=== PATIENT | male | born 1990 | race Caucasian/White ===

== ENCOUNTER 2019-06-02 19:42 | Emergency (ER) | payer SELFPAY ==
[~2019-06-02] VITALS: Ht 172.7 cm; Wt 72.6 kg
--- OUTSIDE RECORDS SUMMARY | 2019-06-02 19:46 | XMS REPORT ---
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 Tracie Shrikanth Gonorrhea active Tracie Shrikanth Chlamydial infection active Tracie Shrikanth Anemia active Tracie Shrikanth Abscess active Chery Robel Epididymitis, left active Kenny Moreno Urethritis active Ric Yuan Wart active Denisse Kirbypard Conjunctivitis, acute, right active Denisse Kirbypard Exposure to STD active Scotty Cummings Sciatica active Tracie Shrikanth Syphilis active Louise Diaz Cholesterol, Screening active Louisejesus Diaz Disorder, endocrine NOS active Louisejesus Diaz Knee joint pain, left active Louisejesus Diaz Shoulder joint pain, right active Louise Diaz Preventive health care active Louise Diaz Need for prophylactic immunotherapy completed - Louisejesus Diaz Gonorrhea of pharynx active Tracie Shrikanth Syphilis completed - Louise Diaz Immunization update active Louise Diaz HIV infection active John Villatoro ENCOUNTERS Date Type Provider Location Encounter Diagnosis - Ambulatory Encounter Lacie Pollard [facility] Adult Medicine UNK - Ambulatory Encounter Joao Kuhn [facility] [place] Adult Medicine UNK - Ambulatory Encounter Tracie Cieranth Tracie Jordyikanth LM Adult Medicine Gonorrhea of pharynxVenereal disease of the anus and rectum due to Chlamydia trachomatisGonococcal infection of anus and rectum - Ambulatory Encounter Traciealem Rockh Tracie Spenceikanth [employer] [place] Adult Medicine UNK - Ambulatory Encounter Tracie Jordyikanth Tracie Jordyikanth [facility] [place] Adult Medicine UNK - Ambulatory Encounter Tracie Pranavh Tracie Cieranth Lacie Pollard LM Adult Medicine UNK - Ambulatory Encounter Tracie Cieranth Tracie Jordyikanth [employer] [place] Adult Medicine UNK - Ambulatory Encounter Traciealem Rockh Tracie Vangnth [facility] [place] Adult Medicine UNK - Ambulatory Encounter Traciealem Kuhn [facility] [place] Adult Medicine Chlamydial infectionGonorrhea - Ambulatory Encounter Traciealem Vangnth Tracie Jordyikanth [employer] [facility] [place] Adult Medicine UNK - Ambulatory Encounter Margaret Ann [facility] Services UNK - Ambulatory Encounter Traciealem Vangnth [facility] [place] Adult Medicine UNK - Ambulatory Encounter Tracie Jordyikanth Tracie Jordyikanth [facility] [place] Adult Medicine UNK - Ambulatory Encounter Tracie Cieranth Tracie Bowen Ann [facility] [place] Adult Medicine Anemia - Ambulatory Encounter Tracie Pranavh Tracie Jordyikanth [employer] [facility] [place] Adult Medicine UNK - Ambulatory Encounter Elizabeth Ramirez [facility] [place] Adult Medicine UNK - Ambulatory Encounter Ric Yuan [facility] LM Adult Medicine UNK - Ambulatory Encounter Ric Yuan [facility] Adult Medicine UNK - Ambulatory Encounter Ric Yuan Jose Eduardo Beaulieu [facility] [place] Adult Medicine UNK - Ambulatory Encounter Tracie Fernandes [facility], LM Adult Medicine UNK - Ambulatory Encounter Patricia Warner [facility] [place] [facility] [employer] UNK - Ambulatory Encounter Magdalene Steiner [facility] Adult Medicine UNK - Ambulatory Encounter Magdalene Steiner [facility] Adult Medicine UNK - Ambulatory Encounter Magdalene Steiner [facility] LM Adult Medicine UNK - Ambulatory Encounter Lisa Sorensen [facility] [place] Adult Medicine UNK - Ambulatory Encounter Magdalene Steiner [facility] [place] Adult Medicine UNK - Ambulatory Encounter Magdalene Soliz [facility] [place] Adult Medicine UNK - Ambulatory Encounter LM Care Coordination Desktop Yuki Fernandes [facility], [facility] UNK - Ambulatory Encounter Eva Rader [facility] [place] Adult Medicine UNK - Ambulatory Encounter Serena Mejia [facility] Services UNK - Ambulatory Encounter Eva Ortiz [employer] LM Adult Medicine UNK - Ambulatory Encounter Tracie Wiseman [employer] [facility] [place] Adult Medicine UNK - Ambulatory Encounter Eva Rader [facility] [place] Adult Medicine UNK - Ambulatory Encounter Patricia Mcdonald [facility] Adult Medicine UNK - Ambulatory Encounter Remigio Warner LM Adult Medicine UNK - Ambulatory Encounter Randi Daniel [facility] UNK - Ambulatory Encounter Tracie Wiseman [facility] Adult Medicine UNK - Ambulatory Encounter Tracie Pollard [facility] Adult Medicine UNK - Ambulatory Encounter Tracie Wiseman [facility] Adult Medicine UNK - Ambulatory Encounter Tracie Wiseman [facility] Adult Medicine UNK - Ambulatory Encounter Tracie Pollard [facility] Adult Medicine UNK - Ambulatory Encounter Chery Huston LM Adult Medicine UNK - Ambulatory Encounter Chery Mcmillan [facility] Adult Medicine Abscess - Ambulatory Encounter Chery Huston [facility] LM Adult Medicine UNK - Ambulatory Encounter Chery Huston LM Adult Medicine UNK - Ambulatory Encounter Chery Mcmillan [facility] Adult Medicine UNK - Ambulatory Encounter Lacie Becerraunas [facility] UNK - Ambulatory Encounter Kenny Moreno LinkLog LM Adult Medicine UNK - Ambulatory Encounter Kenny Moreno LM Adult Medicine UNK - Ambulatory Encounter Kenny Moreno [facility] Adult Medicine UNK - Ambulatory Encounter Kenny Quispecy Amadou LM Adult Medicine Epididymitis, left - Ambulatory Encounter [facility] UNK - Ambulatory Encounter Tracie Vizcaino [facility] UNK - Ambulatory Encounter Elizabeth Ramirez [facility] Adult Medicine UNK - Ambulatory Encounter Ric Yuan [facility] LM Adult Medicine UNK - Ambulatory Encounter Ric Yuan LM Adult Medicine UNK - Ambulatory Encounter Ric Johnson Ramirez [facility] [place] Adult Medicine Urethritis - Ambulatory Encounter Denisse Luis Valarie Rader [facility] Adult Medicine UNK - Ambulatory Encounter Denisse Luis [facility] Adult Medicine UNK - Ambulatory Encounter Denisse Kirbypard [facility] Adult Medicine UNK - Ambulatory Encounter Denisse Kirbyparjuan carlos Kirbyparjuan carlos Ruiz Nila LM Adult Medicine Conjunctivitis, acute, rightWart - Ambulatory Encounter Tracie Wiseman [facility] Adult Medicine UNK - Ambulatory Encounter Scotty Cummings [facility] LM Adult Medicine UNK - Ambulatory Encounter Scotty Cummings [facility] Adult Medicine UNK - Ambulatory Encounter Scotty Martinez LM Adult Medicine Exposure to STD - Ambulatory Encounter Tracie Reyes [facility] UNK - Ambulatory Encounter Remigio Alexis [facility] Adult Medicine UNK - Ambulatory Encounter Tracie Wiseman [facility] Adult Medicine UNK - Ambulatory Encounter Tracie Pollard [facility] Adult Medicine UNK - Ambulatory Encounter Tracie Wiseman [facility] Adult Medicine UNK - Ambulatory Encounter Tracie Wiseman [facility] Adult Medicine UNK - Ambulatory Encounter Oumar Marquez [facility] [place] [employer] UNK - Ambulatory Encounter Tracie Wiseman [facility] Adult Medicine UNK - Ambulatory Encounter Tracie Knox LM Adult Medicine Sciatica - Ambulatory Encounter Dagoberto Asific Cesilia Romero [facility] Adult Medicine UNK - Ambulatory Encounter Tracie Wiseman [facility] Adult Medicine UNK - Ambulatory Encounter [facility] UNK - Ambulatory Encounter Louise Diaz [facility] Adult Medicine UNK - Ambulatory Encounter Louise Beaulieu [facility] Adult Medicine Syphilis - Ambulatory Encounter Louise Diaz [facility] Adult Medicine UNK - Ambulatory Encounter Ronda [facility]ic [facility] Adult Medicine UNK - Ambulatory Encounter Louise HamptonLogic [facility] Adult Medicine UNK - Ambulatory Encounter Florenica Diaz LM Adult Medicine UNK - Ambulatory Encounter Sabrina Payton LinkLograndee Diaz [facility] [place] Adult Medicine UNK - Ambulatory Encounter Patricia Warner [facility] [place] [employer] UNK - Ambulatory Encounter Louise Diaz LM Adult Medicine UNK - Ambulatory Encounter Louise Beaulieu [facility] [place] Adult Medicine Disorder, endocrine NOSCholesterol, Screening - Ambulatory Encounter Leandra Beaulieu [facility] [place] Adult Medicine UNK - Ambulatory Encounter Louise Diaz [employer] LM Adult Medicine UNK - Ambulatory Encounter Louise Diaz LinkLograndee LM Adult Medicine UNK - Ambulatory Encounter Leandra Beaulieu LM Adult Medicine UNK - Ambulatory Encounter Leandra Beaulieu LM Adult Medicine UNK - Ambulatory Encounter Leandra Beaulieu LM Adult Medicine UNK - Ambulatory Encounter Louise Diaz LM Adult Medicine UNK - Ambulatory Encounter Louise Diaz [employer] LM Adult Medicine UNK - Ambulatory Encounter Louise Diaz [employer] Leandra Beaulieu LM Adult Medicine UNK - Ambulatory Encounter Louise Guadarrama Aus LM Adult Medicine UNK - Ambulatory Encounter Louise Chirinos LM Adult Medicine UNK - Ambulatory Encounter Louise Diaz LM Adult Medicine UNK - Ambulatory Encounter Louise Rader [facility] [place] Adult Medicine SyphilisGonorrhea of pharynxNeed for prophylactic immunotherapyShoulder joint pain, rightKnee joint pain, left - Ambulatory Encounter Louise Diaz [employer] [facility] [place] Adult Medicine UNK - Ambulatory Encounter Patricia Warner [facility] [place] [employer] UNK - Ambulatory Encounter Patricia Warner [facility] [place] [employer] UNK - Ambulatory Encounter Patricia Warner [facility] [place] [employer] UNK - Ambulatory Encounter Patricia Warner [facility] [place] [employer] UNK - [facility] - Ambulatory Encounter Louise Diaz [facility] [place] Adult Medicine UNK - Ambulatory Encounter Louise Beaulieu [facility] [place] Adult Medicine Preventive health care - Ambulatory Encounter Neal Ribera [facility] [place] Adult Medicine UNK - Ambulatory Encounter Louise [facility] - Ambulatory Encounter Ronda Albert [facility] [place] Adult Medicine Need for prophylactic immunotherapy - Ambulatory Encounter Remigio Mistry [facility] [place] Adult Medicine UNK - Ambulatory Encounter Tanya Sharma [facility] [place] [employer] UNK - Ambulatory Encounter [facility] UNK - Ambulatory Encounter Tanya Sharma [facility] [place] [employer] UNK - Ambulatory Encounter Tanya Sharma [facility] [place] [employer] UNK - Ambulatory Encounter Tanya Sharma [facility] [place] [employer] UNK - Ambulatory Encounter Tanya Sharma [facility] [place] [employer] UNK - Ambulatory Encounter Louise Beaulieu [facility] [place] Adult Medicine Gonorrhea of pharynx - Ambulatory Encounter [facility] - Ambulatory Encounter Leandra Diaz [facility] [place] Adult Medicine UNK - Ambulatory Encounter Louise Diaz [facility] [place] Adult Medicine UNK - Ambulatory Encounter Louise [facility] - Ambulatory Encounter Louise [facility] - Ambulatory Encounter Tanya [email or web address] [employer] UNK - Ambulatory Encounter Louise Diaz [facility] Adult Medicine UNK - Ambulatory Encounter Louise Diaz [facility] Adult Medicine UNK - Ambulatory Encounter Louise Beaulieu [facility] [place] Adult Medicine UNK - Ambulatory Encounter Zak Roy [facility] [place] Adult Medicine UNK - Ambulatory Encounter Louise Diaz [employer] [facility] Adult Medicine UNK - Ambulatory Encounter Remigio Mistry [facility] [place] Adult Medicine UNK - Ambulatory Encounter Louise Diaz [facility] Adult Medicine UNK - Ambulatory Encounter Tanya Sharma [facility] [place] [employer] UNK - Ambulatory Encounter Tanya Sharma [facility] [place] [employer] UNK - Ambulatory Encounter Louise Diaz LM Adult Medicine UNK - Ambulatory Encounter Tanya Sharma [facility] [employer] UNK - Ambulatory Encounter Louise Diaz LM Adult Medicine UNK - Ambulatory Encounter Louise Beaulieu [facility] [place] Adult Medicine UNK - Ambulatory Encounter Zak Roy LM Adult Medicine UNK - Ambulatory Encounter Zak Roy [facility] [place] Adult Medicine UNK - Ambulatory Encounter [facility] - Ambulatory Encounter Tanya Sharma [facility] [place] [employer] UNK - Ambulatory Encounter Bin Chang LM Adult Medicine UNK - Ambulatory Encounter Tanya Sharma [facility] [place] [employer] UNK - Ambulatory Encounter Zak Roy LM Adult Medicine UNK - Ambulatory Encounter Zak Roy LM Adult Medicine UNK - Ambulatory Encounter Louise Diaz LM Adult Medicine UNK - Ambulatory Encounter Louise Beaulieu [facility] [place] Adult Medicine Immunization updateSyphilis - Ambulatory Encounter Louise Diaz LM Adult Medicine UNK - Ambulatory Encounter Louise Diaz [facility]Logic LM Adult Medicine UNK - [facility]ulatory [facility] - Ambulatory Encounter Louise Diazhannah Villatoro [facility] [place] Adult Medicine HIV infection VITAL SIGNS No Information Available ALLERGIES Allergy Name Onset Date Reaction Criticality Status CODEINE face itsches Unable to assess criticality active ABACAVIR, [id number] POSITIVE, POSSIBLE HYPERSENSITIVITY High Criticality active REASON FOR REFERRAL No Information Available RESULTS Date Observation Value Provider Reference Range Interpretation Location Neisseria gonorrhoeae, throat culture Positive [employer] Negative Abnormal " Neisseria gonorrhoeae DNA probe Positive [employer] Negative Abnormal " chlamydia DNA probe Negative [employer] Negative Neisseria gonorrhoeae DNA probe Negative [employer] Negative " chlamydia DNA probe Negative [employer] Negative ferritin, serum 78 ng/mL [facility] 30-400 " rapid plasma reagin antibody, serum Non Reactive [employer] Non Reactive " folate, serum >19.9 ng/mL [employer] >3.0 " B-12, serum 388 pg/mL [employer] 232-1245 " iron saturation percent, serum 34 % [facility] 15-55 " iron, serum 100 ug/dL [employer] 38-169 " iron binding capacity, unsaturated 192 ug/dL [employer] 111-343 " iron binding capacity, total 292 ug/dL [facility] 250-450 " immature granulocytes, percentage of total cells, blood 0 % [employer] Not Estab. " basophil count, absolute 0.0 x10E3/uL [employer] 0.0-0.2 " Eosinophil Absolute Count 0.1 X10E3/UL [employer] 0.0-0.4 " monocyte count, blood, automated 0.4 X10E3/UL [employer] 0.1-0.9 " lymphocyte count, blood, automated 2.0 X10E3/UL [employer] 0.7-3.1 " Absolute Neutrophils 2.4 X10E3/UL [employer] 1.4-7.0 " basophils as percent of blood leukocytes 0 % [employer] Not Estab. " eosinophils as percent of blood leukocytes 1 % [employer] Not Estab. " monocytes as percent of blood leukocytes 9 % [employer] Not Estab. " lymphocytes as percent of blood leukocytes 40 % [employer] Not Estab. " neutrophils as percent of blood leukocytes 50 % [employer] Not Estab. " platelet count 293 X10E3/UL [employer] 150-450 " red blood cell distribution width 14.2 % [employer] 12.3-15.4 " mean corpuscular hemoglobin concentration, RBC 34.4 G/DL [employer] 31.5-35.7 " mean corpuscular hemoglobin, RBC 29.9 pg [employer] 26.6-33.0 " mean corpuscular volume, RBC 87 fL [employer] 79-97 " hematocrit, blood 36.3 % [employer] 37.5-51.0 Low " hemoglobin, blood 12.5 g/dL [employer] 13.0-17.7 Low " erythrocyte (RBC) count 4.18 X10E6/UL [employer] 4.14-5.80 " leukocyte count, blood 4.9 X10E3/UL [employer] 3.4-10.8 rapid plasma reagin antibody, serum Non Reactive [employer] Non Reactive " HIV-1RNA, serum, by PCR, quantitative <20 copies/mL [facility] " alanine aminotransferase (SGPT), serum 35 1/L [facility] 0-44 " aspartate aminotransferase (SGOT), serum 24 1/L [employer] 0-40 " alkaline phosphatase, serum 68 1/L [employer] 39-117 " bilirubin, serum, total 0.3 mg/dL [employer] 0.0-1.2 " albumin/globulin ratio, serum 1.9 [employer] 1.2-2.2 " globulin, serum 2.5 [employer] 1.5-4.5 " albumin, serum 4.7 g/dL [employer] 3.5-5.5 " protein, total, serum 7.2 g/dL [employer] 6.0-8.5 " calcium, serum 9.9 mg/dL [employer] 8.7-10.2 " carbon dioxide, venous blood 27 mmol/L [employer] 20-29 " chloride, serum 101 mmol/L [employer] 96-106 " potassium, serum 4.1 mmol/L [employer] 3.5-5.2 " sodium, serum 141 mmol/L [employer] 134-144 " urea nitrogen/creatinine ratio, serum 12 [facility] 9-20 " eGFR if 111 mL/min/((173/100).m2) [facility] >59 " Estimated Glomerular Filtration Rate (calc) 96 mL/min/((173/100).m2) [employer] >59 " creatinine, serum 1.04 mg/dL [employer] 0.76-1.27 " urea nitrogen, blood 12 mg/dL [employer] 6-20 " blood glucose, random 100 mg/dL [employer] 65-99 High " immature granulocytes, percentage of total cells, blood 0 % [employer] Not Estab. " basophil count, absolute 0.0 x10E3/uL [employer] 0.0-0.2 " Eosinophil Absolute Count 0.2 X10E3/UL [employer] 0.0-0.4 " monocyte count, blood, automated 0.6 X10E3/UL [employer] 0.1-0.9 " lymphocyte count, blood, automated 3.1 X10E3/UL [employer] 0.7-3.1 " Absolute Neutrophils 2.7 X10E3/UL [employer] 1.4-7.0 " basophils as percent of blood leukocytes 1 % [employer] Not Estab. " eosinophils as percent of blood leukocytes 2 % [employer] Not Estab. " monocytes as percent of blood leukocytes 9 % [employer] Not Estab. " lymphocytes as percent of blood leukocytes 47 % [employer] Not Estab. " neutrophils as percent of blood leukocytes 41 % [employer] Not Estab. " platelet count 335 X10E3/UL [employer] 150-379 " red blood cell distribution width 14.2 % [employer] 12.3-15.4 " mean corpuscular hemoglobin concentration, RBC 34.0 G/DL [employer] 31.5-35.7 " mean corpuscular hemoglobin, RBC 29.4 pg [employer] 26.6-33.0 " mean corpuscular volume, RBC 87 fL [employer] 79-97 " hematocrit, blood 37.1 % [employer] 37.5-51.0 Low " hemoglobin, blood 12.6 g/dL [employer] 13.0-17.7 Low " erythrocyte (RBC) count 4.29 X10E6/UL [employer] 4.14-5.80 " leukocyte count, blood 6.6 X10E3/UL [employer] 3.4-10.8 " CD4/CD8 ratio 1.04 [employer] 0.92-3.72 " T-suppressor cells (CD8) as percent of blood lymphocytes 34.6 % [facility] 12.0-35.5 " absolute CD8 1073 [facility] 109-897 High " T-helper cells (CD4) as percent of blood lymphocytes 36.1 % [facility] 30.8-58.5 " T-helper cells (CD4) count 1119 /UL [employer] [phone] Neisseria gonorrhoeae DNA probe Positive [employer] Negative Abnormal " chlamydia DNA probe Positive [employer] Negative Abnormal Neisseria gonorrhoeae DNA probe Negative [employer] Negative " chlamydia DNA probe Negative [employer] Negative Neisseria gonorrhoeae, throat culture Negative [employer] Negative hepatitis B surface antigen Negative [employer] Negative " hepatitis C antibody, serum <0.1 [employer] 0.0-0.9 " rapid plasma reagin antibody, serum Non Reactive [employer] Non Reactive Neisseria gonorrhoeae, throat culture Negative [employer] Negative " Neisseria gonorrhoeae DNA probe Negative [employer] Negative " chlamydia DNA probe Negative [employer] Negative Neisseria gonorrhoeae DNA probe Negative [employer] Negative " chlamydia DNA probe Negative [employer] Negative hepatitis B surface antigen Negative [employer] Negative " hepatitis C antibody, serum <0.1 [employer] 0.0-0.9 " rapid plasma reagin antibody, serum Non Reactive [employer] Non Reactive " HIV-1RNA, serum, by PCR, quantitative <20 copies/mL [facility] " LDL cholesterol, serum 56 mg/dL [facility] 0-99 " very low density lipoproteins 12 mg/dL [facility] 5-40 " HDL cholesterol, serum 45 mg/dL [employer] >39 " triglyceride, serum, fasting 58 mg/dL [facility] 0-149 " cholesterol, serum 113 mg/dL [employer] 100-199 " alanine aminotransferase (SGPT), serum 19 1/L [employer] 0-44 " aspartate aminotransferase (SGOT), serum 18 1/L [employer] 0-40 " alkaline phosphatase, serum 68 1/L [employer] 39-117 " bilirubin, serum, total 0.6 mg/dL [employer] 0.0-1.2 " albumin/globulin ratio, serum 1.9 [employer] 1.2-2.2 " globulin, serum 2.5 [employer] 1.5-4.5 " albumin, serum 4.7 g/dL [employer] 3.5-5.5 " protein, total, serum 7.2 g/dL [employer] 6.0-8.5 " calcium, serum 9.5 mg/dL [employer] 8.7-10.2 " carbon dioxide, venous blood 25 mmol/L [employer] 20-29 " chloride, serum 100 mmol/L [employer] 96-106 " potassium, serum 4.0 mmol/L [employer] 3.5-5.2 " sodium, serum 136 mmol/L [employer] 134-144 " urea nitrogen/creatinine ratio, serum 10 [employer] 9-20 " eGFR if 108 mL/min/((173/100).m2) [facility] >59 " Estimated Glomerular Filtration Rate (calc) 93 mL/min/((173/100).m2) [employer] >59 " creatinine, serum 1.07 mg/dL [employer] 0.76-1.27 " urea nitrogen, blood 11 mg/dL [employer] 6-20 " blood glucose, random 107 mg/dL [employer] 65-99 High " immature granulocytes, percentage of total cells, blood 0 % [employer] Not Estab. " basophil count, absolute 0.0 x10E3/uL [employer] 0.0-0.2 " Eosinophil Absolute Count 0.1 X10E3/UL [employer] 0.0-0.4 " monocyte count, blood, automated 0.3 X10E3/UL [employer] 0.1-0.9 " lymphocyte count, blood, automated 2.2 X10E3/UL [employer] 0.7-3.1 " Absolute Neutrophils 4.5 X10E3/UL [employer] 1.4-7.0 " basophils as percent of blood leukocytes 1 % [employer] Not Estab. " eosinophils as percent of blood leukocytes 1 % [employer] Not Estab. " monocytes as percent of blood leukocytes 4 % [employer] Not Estab. " lymphocytes as percent of blood leukocytes 31 % [employer] Not Estab. " neutrophils as percent of blood leukocytes 63 % [employer] Not Estab. " platelet count 317 X10E3/UL [facility] 150-379 " red blood cell distribution width 13.3 % [facility] 12.3-15.4 " mean corpuscular hemoglobin concentration, RBC 34.9 G/DL [facility] 31.5-35.7 " mean corpuscular hemoglobin, RBC 29.2 pg [facility] 26.6-33.0 " mean corpuscular volume, RBC 84 fL [facility] 79-97 " hematocrit, blood 36.1 % [facility] 37.5-51.0 Low " hemoglobin, blood 12.6 g/dL [facility] 13.0-17.7 Low " erythrocyte (RBC) count 4.31 X10E6/UL [facility] 4.14-5.80 " leukocyte count, blood 7.1 X10E3/UL [facility] 3.4-10.8 " CD4/CD8 ratio 1.29 [facility] 0.92-3.72 " T-suppressor cells (CD8) as percent of blood lymphocytes 31.5 % [facility] 12.0-35.5 " absolute CD8 693 [facility] 109-897 " T-helper cells (CD4) as percent of blood lymphocytes 40.6 % [facility] 30.8-58.5 " T-helper cells (CD4) count 893 /UL [facility] [phone] rapid plasma reagin antibody, serum Non Reactive [facility] Non Reactive Neisseria gonorrhoeae DNA probe Negative [facility] Negative " chlamydia DNA probe Negative [facility] Negative Neisseria gonorrhoeae, throat culture Positive [facility] Negative Abnormal " Neisseria gonorrhoeae DNA probe Negative [facility] Negative " chlamydia DNA probe Negative [facility] Negative rapid plasma reagin antibody, serum Non Reactive [facility] Non Reactive " HIV-1RNA, serum, by PCR, quantitative <20 copies/mL [facility] " alanine aminotransferase (SGPT), serum 19 1/L [facility] 0-44 " aspartate aminotransferase (SGOT), serum 21 1/L [facility] 0-40 " alkaline phosphatase, serum 84 1/L [facility] 39-117 " bilirubin, serum, total 0.5 mg/dL [facility] 0.0-1.2 " albumin/globulin ratio, serum 1.9 [facility] 1.2-2.2 " globulin, serum 2.4 [facility] 1.5-4.5 " albumin, serum 4.5 g/dL [facility] 3.5-5.5 " protein, total, serum 6.9 g/dL [facility] 6.0-8.5 " calcium, serum 9.8 mg/dL [facility] 8.7-10.2 " carbon dioxide, venous blood 29 mmol/L [facility] 18-29 " chloride, serum 99 mmol/L [facility] 96-106 " potassium, serum 3.9 mmol/L [facility] 3.5-5.2 " sodium, serum 141 mmol/L [facility] 134-144 " urea nitrogen/creatinine ratio, serum 10 [facility] 9-20 " eGFR if 126 mL/min/((173/100).m2) [facility] >59 " Estimated Glomerular Filtration Rate (calc) 109 mL/min/((173/100).m2) [facility] >59 " creatinine, serum 0.94 mg/dL [facility] 0.76-1.27 " urea nitrogen, blood 9 mg/dL [facility] 6-20 " blood glucose, random 96 mg/dL [facility] 65-99 " immature granulocytes, percentage of total cells, blood 0 % [facility] Not Estab. " basophil count, absolute 0.0 x10E3/uL [facility] 0.0-0.2 " Eosinophil Absolute Count 0.1 X10E3/UL [facility] 0.0-0.4 " monocyte count, blood, automated 0.5 X10E3/UL [facility] 0.1-0.9 " lymphocyte count, blood, automated 1.9 X10E3/UL [facility] 0.7-3.1 " Absolute Neutrophils 4.3 X10E3/UL [facility] 1.4-7.0 " basophils as percent of blood leukocytes 0 % [facility] Not Estab. " eosinophils as percent of blood leukocytes 2 % [facility] Not Estab. " monocytes as percent of blood leukocytes 8 % [facility] Not Estab. " lymphocytes as percent of blood leukocytes 27 % [facility] Not Estab. " neutrophils as percent of blood leukocytes 63 % [facility] Not Estab. " platelet count 297 X10E3/UL [facility] 150-379 " red blood cell distribution width 13.3 % [facility] 12.3-15.4 " mean corpuscular hemoglobin concentration, RBC 33.6 G/DL [facility] 31.5-35.7 " mean corpuscular hemoglobin, RBC 30.1 pg [facility] 26.6-33.0 " mean corpuscular volume, RBC 90 fL [facility] 79-97 " hematocrit, blood 42.3 % [facility] 37.5-51.0 " hemoglobin, blood 14.2 g/dL [facility] 13.0-17.7 " erythrocyte (RBC) count 4.71 X10E6/UL [facility] 4.14-5.80 " leukocyte count, blood 6.9 X10E3/UL [facility] 3.4-10.8 " CD4/CD8 ratio 1.28 [facility] 0.92-3.72 " T-suppressor cells (CD8) as percent of blood lymphocytes 32.0 % [facility] 12.0-35.5 " absolute CD8 608 [facility] 109-897 " T-helper cells (CD4) as percent of blood lymphocytes 41.0 % [facility] 30.8-58.5 " T-helper cells (CD4) count 779 /UL [facility] [phone] Neisseria gonorrhoeae, throat culture Negative [facility] Negative " Neisseria gonorrhoeae DNA probe Negative [facility] Negative " chlamydia DNA probe Negative [facility] Negative Quantiferon Gold TB blood test for tuberculosis screening Negative [facility] Negative hepatitis C antibody, serum 0.2 [facility] 0.0-0.9 " rapid plasma reagin antibody, serum Non Reactive [facility] Non Reactive " Neisseria gonorrhoeae DNA probe Negative [facility] Negative " chlamydia DNA probe Negative [facility] Negative " HIV-1RNA, serum, by PCR, quantitative <20 copies/mL [facility] " alanine aminotransferase (SGPT), serum 35 1/L [facility] 0-44 " aspartate aminotransferase (SGOT), serum 56 1/L [facility] 0-40 High " alkaline phosphatase, serum 74 1/L [facility] 39-117 " bilirubin, serum, total 0.4 mg/dL [facility] 0.0-1.2 " albumin/globulin ratio, serum 2.1 [facility] 1.2-2.2 " globulin, serum 2.5 [facility] 1.5-4.5 " albumin, serum 5.2 g/dL [facility] 3.5-5.5 " protein, total, serum 7.7 g/dL [facility] 6.0-8.5 " calcium, serum 9.7 mg/dL [facility] 8.7-10.2 " carbon dioxide, venous blood 24 mmol/L [facility] 18-29 " chloride, serum 101 mmol/L [facility] 96-106 " potassium, serum 4.1 mmol/L [facility] 3.5-5.2 " sodium, serum 142 mmol/L [facility] 134-144 " urea nitrogen/creatinine ratio, serum 17 [facility] 9-20 " eGFR if 137 mL/min/((173/100).m2) [facility] >59 " Estimated Glomerular Filtration Rate (calc) 118 mL/min/((173/100).m2) [facility] >59 " creatinine, serum 0.84 mg/dL [facility] 0.76-1.27 " urea nitrogen, blood 14 mg/dL [facility] 6-20 " blood glucose, random 78 mg/dL [facility] 65-99 " immature granulocytes, percentage of total cells, blood 0 % [facility] Not Estab. " basophil count, absolute 0.0 x10E3/uL [facility] 0.0-0.2 " Eosinophil Absolute Count 0.2 X10E3/UL [facility] 0.0-0.4 " monocyte count, blood, automated 0.4 X10E3/UL [facility] 0.1-0.9 " lymphocyte count, blood, automated 2.6 X10E3/UL [facility] 0.7-3.1 " Absolute Neutrophils 3.0 X10E3/UL [facility] 1.4-7.0 " basophils as percent of blood leukocytes 0 % [facility] Not Estab. " eosinophils as percent of blood leukocytes 3 % [facility] Not Estab. " monocytes as percent of blood leukocytes 6 % [facility] Not Estab. " lymphocytes as percent of blood leukocytes 42 % [facility] Not Estab. " neutrophils as percent of blood leukocytes 49 % [facility] Not Estab. " platelet count 259 X10E3/UL [facility] 150-379 " red blood cell distribution width 13.3 % [facility] 12.3-15.4 " mean corpuscular hemoglobin concentration, RBC 34.1 G/DL [facility] 31.5-35.7 " mean corpuscular hemoglobin, RBC 30.0 pg [facility] 26.6-33.0 " mean corpuscular volume, RBC 88 fL [facility] 79-97 " hematocrit, blood 41.7 % [facility] 37.5-51.0 " hemoglobin, blood 14.2 g/dL [facility] 13.0-17.7 " erythrocyte (RBC) count 4.73 X10E6/UL [facility] 4.14-5.80 " leukocyte count, blood 6.1 X10E3/UL [facility] 3.4-10.8 " CD4/CD8 ratio 1.11 [facility] 0.92-3.72 " T-suppressor cells (CD8) as percent of blood lymphocytes 35.2 % [facility] 12.0-35.5 " absolute CD8 915 [facility] 109-897 High " T-helper cells (CD4) as percent of blood lymphocytes 39.2 % [facility] 30.8-58.5 " T-helper cells (CD4) count 1019 /UL [facility] [phone] rapid plasma reagin antibody, serum Non Reactive [facility] Non Reactive " HIV-1RNA, serum, by PCR, quantitative <20 copies/mL [facility] " alanine aminotransferase (SGPT), serum 17 1/L [facility] 0-44 " aspartate aminotransferase (SGOT), serum 21 1/L [facility] 0-40 " alkaline phosphatase, serum 55 1/L [facility] 39-117 " bilirubin, serum, total 0.6 mg/dL [facility] 0.0-1.2 " albumin/globulin ratio, serum 1.9 [facility] 1.2-2.2 " globulin, serum 2.5 [facility] 1.5-4.5 " albumin, serum 4.8 g/dL [facility] 3.5-5.5 " protein, total, serum 7.3 g/dL [facility] 6.0-8.5 " calcium, serum 9.7 mg/dL [facility] 8.7-10.2 " carbon dioxide, venous blood 23 mmol/L [facility] 18-29 " chloride, serum 102 mmol/L [facility] 96-106 " potassium, serum 4.7 mmol/L [facility] 3.5-5.2 " sodium, serum 141 mmol/L [facility] 134-144 " urea nitrogen/creatinine ratio, serum 27 [facility] 9-20 High " eGFR if 134 mL/min/((173/100).m2) [facility] >59 " Estimated Glomerular Filtration Rate (calc) 116 mL/min/((173/100).m2) [facility] >59 " creatinine, serum 0.90 mg/dL [facility] 0.76-1.27 " urea nitrogen, blood 24 mg/dL [facility] 6-20 High " blood glucose, random 89 mg/dL [facility] 65-99 " immature granulocytes, percentage of total cells, blood 0 % [facility] " basophil count, absolute 0.0 x10E3/uL [facility] 0.0-0.2 " Eosinophil Absolute Count 0.2 X10E3/UL [facility] 0.0-0.4 " monocyte count, blood, automated 0.5 X10E3/UL [facility] 0.1-0.9 " lymphocyte count, blood, automated 2.2 X10E3/UL [facility] 0.7-3.1 " Absolute Neutrophils 2.4 X10E3/UL [facility] 1.4-7.0 " basophils as percent of blood leukocytes 1 % [facility] " eosinophils as percent of blood leukocytes 3 % [facility] " monocytes as percent of blood leukocytes 10 % [facility] " lymphocytes as percent of blood leukocytes 41 % [facility] " neutrophils as percent of blood leukocytes 45 % [facility] " platelet count 256 X10E3/UL [facility] 150-379 " red blood cell distribution width 13.3 % [facility] 12.3-15.4 " mean corpuscular hemoglobin concentration, RBC 34.5 G/DL [facility] 31.5-35.7 " mean corpuscular hemoglobin, RBC 30.3 pg [facility] 26.6-33.0 " mean corpuscular volume, RBC 88 fL [facility] 79-97 " hematocrit, blood 38.3 % [facility] 37.5-51.0 " hemoglobin, blood 13.2 g/dL [facility] 12.6-17.7 " erythrocyte (RBC) count 4.35 X10E6/UL [facility] 4.14-5.80 " leukocyte count, blood 5.3 X10E3/UL [facility] 3.4-10.8 " CD4/CD8 ratio 0.96 [facility] 0.92-3.72 " T-suppressor cells (CD8) as percent of blood lymphocytes 37.5 % [facility] 12.0-35.5 High " absolute CD8 825 [facility] 109-897 " T-helper cells (CD4) as percent of blood lymphocytes 36.0 % [facility] 30.8-58.5 " T-helper cells (CD4) count 792 /UL [facility] [phone] Treponema pallidum antibodies, by particle agglutination Positive [facility] Negative Abnormal " rapid plasma reagin antibody, serum 1:1 [facility] NonRea<1:1 High " HIV-1RNA, serum, by PCR, quantitative <20 copies/mL [facility] " testosterone, serum, free 8.3 pg/mL [facility] 9.3-26.5 Low " testosterone, total 473 ng/dL [facility] [phone] " LDL cholesterol, serum 67 mg/dL [facility] 0-99 " very low density lipoproteins 12 mg/dL [facility] 5-40 " HDL cholesterol, serum 51 mg/dL [facility] >39 " triglyceride, serum, fasting 59 mg/dL [facility] 0-149 " cholesterol, serum 130 mg/dL [facility] 100-199 " alanine aminotransferase (SGPT), serum 24 1/L [facility] 0-44 " aspartate aminotransferase (SGOT), serum 25 1/L [facility] 0-40 " alkaline phosphatase, serum 66 1/L [facility] 39-117 " bilirubin, serum, total 0.5 mg/dL [facility] 0.0-1.2 " albumin/globulin ratio, serum 2.3 [facility] 1.2-2.2 High " globulin, serum 2.2 [facility] 1.5-4.5 " albumin, serum 5.0 g/dL [facility] 3.5-5.5 " protein, total, serum 7.2 g/dL [facility] 6.0-8.5 " calcium, serum 9.8 mg/dL [facility] 8.7-10.2 " carbon dioxide, venous blood 24 mmol/L [facility] 18-29 " chloride, serum 101 mmol/L [facility] 96-106 " potassium, serum 4.7 mmol/L [facility] 3.5-5.2 " sodium, serum 141 mmol/L [facility] 134-144 " urea nitrogen/creatinine ratio, serum 24 [facility] 9-20 High " eGFR if 122 mL/min/((173/100).m2) [facility] >59 " Estimated Glomerular Filtration Rate (calc) 106 mL/min/((173/100).m2) [facility] >59 " creatinine, serum 0.97 mg/dL [facility] 0.76-1.27 " urea nitrogen, blood 23 mg/dL [facility] 6-20 High " blood glucose, random 77 mg/dL [facility] 65-99 " immature granulocytes, percentage of total cells, blood 0 % [facility] " basophil count, absolute 0.0 x10E3/uL [facility] 0.0-0.2 " Eosinophil Absolute Count 0.1 X10E3/UL [facility] 0.0-0.4 " monocyte count, blood, automated 0.5 X10E3/UL [facility] 0.1-0.9 " lymphocyte count, blood, automated 2.2 X10E3/UL [facility] 0.7-3.1 " Absolute Neutrophils 2.4 X10E3/UL [facility] 1.4-7.0 " basophils as percent of blood leukocytes 0 % [facility] " eosinophils as percent of blood leukocytes 2 % [facility] " monocytes as percent of blood leukocytes 9 % [facility] " lymphocytes as percent of blood leukocytes 42 % [facility] " neutrophils as percent of blood leukocytes 47 % [facility] " platelet count 276 X10E3/UL [facility] 150-379 " red blood cell distribution width 13.0 % [facility] 12.3-15.4 " mean corpuscular hemoglobin concentration, RBC 34.1 G/DL [facility] 31.5-35.7 " mean corpuscular hemoglobin, RBC 30.0 pg [facility] 26.6-33.0 " mean corpuscular volume, RBC 88 fL [facility] 79-97 " hematocrit, blood 41.0 % [facility] 37.5-51.0 " hemoglobin, blood 14.0 g/dL [facility] 12.6-17.7 " erythrocyte (RBC) count 4.66 X10E6/UL [facility] 4.14-5.80 " leukocyte count, blood 5.2 X10E3/UL [facility] 3.4-10.8 " CD4/CD8 ratio 0.80 [facility] 0.92-3.72 Low " T-suppressor cells (CD8) as percent of blood lymphocytes 39.9 % [facility] 12.0-35.5 High " absolute CD8 878 [facility] 109-897 " T-helper cells (CD4) as percent of blood lymphocytes 32.1 % [facility] 30.8-58.5 " T-helper cells (CD4) count 706 /UL [facility] [phone] rapid plasma reagin antibody, serum Non Reactive [facility] Non Reactive " HIV-1RNA, serum, by PCR, quantitative <20 copies/mL [facility] " alanine aminotransferase (SGPT), serum 20 1/L [facility] 0-44 " aspartate aminotransferase (SGOT), serum 19 1/L [facility] 0-40 " alkaline phosphatase, serum 65 1/L [facility] 39-117 " bilirubin, serum, total 0.3 mg/dL [facility] 0.0-1.2 " albumin/globulin ratio, serum 1.9 [facility] 1.1-2.5 " globulin, serum 3.0 [facility] 1.5-4.5 " albumin, serum 5.6 g/dL [facility] 3.5-5.5 High " protein, total, serum 8.6 g/dL [facility] 6.0-8.5 High " calcium, serum 10.3 mg/dL [facility] 8.7-10.2 High " carbon dioxide, venous blood 23 mmol/L [facility] 18-29 " chloride, serum 99 mmol/L [facility] 96-106 " potassium, serum 4.2 mmol/L [facility] 3.5-5.2 " sodium, serum 140 mmol/L [facility] 134-144 " urea nitrogen/creatinine ratio, serum 16 [facility] 8-19 " eGFR if 137 mL/min/((173/100).m2) [facility] >59 " Estimated Glomerular Filtration Rate (calc) 118 mL/min/((173/100).m2) [facility] >59 " creatinine, serum 0.87 mg/dL [facility] 0.76-1.27 " urea nitrogen, blood 14 mg/dL [facility] 6-20 " blood glucose, random 100 mg/dL [facility] 65-99 High " immature granulocytes, percentage of total cells, blood 0 % [facility] " basophil count, absolute 0.0 x10E3/uL [facility] 0.0-0.2 " Eosinophil Absolute Count 0.1 X10E3/UL [facility] 0.0-0.4 " monocyte count, blood, automated 0.5 X10E3/UL [facility] 0.1-0.9 " lymphocyte count, blood, automated 2.6 X10E3/UL [facility] 0.7-3.1 " Absolute Neutrophils 3.2 X10E3/UL [facility] 1.4-7.0 " basophils as percent of blood leukocytes 1 % [facility] " eosinophils as percent of blood leukocytes 2 % [facility] " monocytes as percent of blood leukocytes 7 % [facility] " lymphocytes as percent of blood leukocytes 40 % [facility] " neutrophils as percent of blood leukocytes 50 % [facility] " platelet count 230 X10E3/UL [facility] 150-379 " red blood cell distribution width 13.3 % [facility] 12.3-15.4 " mean corpuscular hemoglobin concentration, RBC 34.7 G/DL [facility] 31.5-35.7 " mean corpuscular hemoglobin, RBC 30.7 pg [facility] 26.6-33.0 " mean corpuscular volume, RBC 89 fL [facility] 79-97 " hematocrit, blood 42.9 % [facility] 37.5-51.0 " hemoglobin, blood 14.9 g/dL [facility] 12.6-17.7 " erythrocyte (RBC) count 4.85 X10E6/UL [facility] 4.14-5.80 " leukocyte count, blood 6.4 X10E3/UL [facility] 3.4-10.8 " CD4/CD8 ratio 0.72 [facility] 0.92-3.72 Low " T-suppressor cells (CD8) as percent of blood lymphocytes 37.1 % [facility] 12.0-35.5 High " absolute CD8 965 [facility] 109-897 High " T-helper cells (CD4) as percent of blood lymphocytes 26.7 % [facility] 30.8-58.5 Low " T-helper cells (CD4) count 694 /UL [facility] [phone] Treponema pallidum antibodies, by particle agglutination Positive [facility] Negative Abnormal " rapid plasma reagin antibody, serum 1:1 [facility] NonRea<1:1 High " HIV-1RNA, serum, by PCR, quantitative <20 copies/mL [facility] " LDL cholesterol, serum 65 mg/dL [facility] 0-99 " very low density lipoproteins 15 mg/dL [facility] 5-40 " HDL cholesterol, serum 45 mg/dL [facility] >39 " triglyceride, serum, fasting 74 mg/dL [facility] 0-149 " cholesterol, serum 125 mg/dL [facility] 100-199 " alanine aminotransferase (SGPT), serum 26 1/L [facility] 0-44 " aspartate aminotransferase (SGOT), serum 30 1/L [facility] 0-40 " alkaline phosphatase, serum 75 1/L [facility] 39-117 " bilirubin, serum, total 0.6 mg/dL [facility] 0.0-1.2 " albumin/globulin ratio, serum 1.9 [facility] 1.1-2.5 " globulin, serum 2.6 [facility] 1.5-4.5 " albumin, serum 4.9 g/dL [facility] 3.5-5.5 " protein, total, serum 7.5 g/dL [facility] 6.0-8.5 " calcium, serum 9.5 mg/dL [facility] 8.7-10.2 " carbon dioxide, venous blood 22 mmol/L [facility] 18-29 " chloride, serum 100 mmol/L [facility] 97-108 " potassium, serum 4.2 mmol/L [facility] 3.5-5.2 " sodium, serum 141 mmol/L [facility] 134-144 " urea nitrogen/creatinine ratio, serum 22 [facility] 8-19 High " eGFR if 133 mL/min/((173/100).m2) [facility] >59 " Estimated Glomerular Filtration Rate (calc) 115 mL/min/((173/100).m2) [facility] >59 " creatinine, serum 0.91 mg/dL [facility] 0.76-1.27 " urea nitrogen, blood 20 mg/dL [facility] 6-20 " blood glucose, random 93 mg/dL [facility] 65-99 " immature granulocytes, percentage of total cells, blood 0 % [facility] " basophil count, absolute 0.0 x10E3/uL [facility] 0.0-0.2 " Eosinophil Absolute Count 0.1 X10E3/UL [facility] 0.0-0.4 " monocyte count, blood, automated 0.5 X10E3/UL [facility] 0.1-0.9 " lymphocyte count, blood, automated 2.6 X10E3/UL [facility] 0.7-3.1 " Absolute Neutrophils 1.7 X10E3/UL [facility] 1.4-7.0 " basophils as percent of blood leukocytes 1 % [facility] " eosinophils as percent of blood leukocytes 3 % [facility] " monocytes as percent of blood leukocytes 9 % [facility] " lymphocytes as percent of blood leukocytes 53 % [facility] " neutrophils as percent of blood leukocytes 34 % [facility] " platelet count 230 X10E3/UL [facility] 150-379 " red blood cell distribution width 13.5 % [facility] 12.3-15.4 " mean corpuscular hemoglobin concentration, RBC 33.2 G/DL [facility] 31.5-35.7 " mean corpuscular hemoglobin, RBC 30.3 pg [facility] 26.6-33.0 " mean corpuscular volume, RBC 91 fL [facility] 79-97 " hematocrit, blood 39.2 % [facility] 37.5-51.0 " hemoglobin, blood 13.0 g/dL [facility] 12.6-17.7 " erythrocyte (RBC) count 4.29 X10E6/UL [facility] 4.14-5.80 " leukocyte count, blood 4.9 X10E3/UL [facility] 3.4-10.8 " CD4/CD8 ratio 1.27 [facility] 0.92-3.72 " T-suppressor cells (CD8) as percent of blood lymphocytes 33.4 % [facility] 12.0-35.5 " absolute CD8 868 [facility] 109-897 " T-helper cells (CD4) as percent of blood lymphocytes 42.4 % [facility] 30.8-58.5 " T-helper cells (CD4) count 1102 /UL [facility] [phone] source ANAL... [facility] HIV-1RNA, serum, by PCR, quantitative <20 copies/mL [facility] " alanine aminotransferase (SGPT), serum 19 1/L [facility] 0-44 " aspartate aminotransferase (SGOT), serum 21 1/L [facility] 0-40 " alkaline phosphatase, serum 68 1/L [facility] 39-117 " bilirubin, serum, total 0.7 mg/dL [facility] 0.0-1.2 " albumin/globulin ratio, serum 1.8 [facility] 1.1-2.5 " globulin, serum 2.6 [facility] 1.5-4.5 " albumin, serum 4.6 g/dL [facility] 3.5-5.5 " protein, total, serum 7.2 g/dL [facility] 6.0-8.5 " calcium, serum 9.6 mg/dL [facility] 8.7-10.2 " carbon dioxide, venous blood 22 mmol/L [facility] 18-29 " chloride, serum 100 mmol/L [facility] 97-108 " potassium, serum 4.1 mmol/L [facility] 3.5-5.2 " sodium, serum 138 mmol/L [facility] 134-144 " urea nitrogen/creatinine ratio, serum 16 [facility] 8-19 " eGFR if 117 mL/min/((173/100).m2) [facility] >59 " Estimated Glomerular Filtration Rate (calc) 101 mL/min/((173/100).m2) [facility] >59 " creatinine, serum 1.01 mg/dL [facility] 0.76-1.27 " urea nitrogen, blood 16 mg/dL [facility] 6-20 " blood glucose, random 81 mg/dL [facility] 65-99 " immature granulocytes, percentage of total cells, blood 0 % [facility] " basophil count, absolute 0.0 x10E3/uL [facility] 0.0-0.2 " Eosinophil Absolute Count 0.4 X10E3/UL [facility] 0.0-0.4 " monocyte count, blood, automated 0.5 X10E3/UL [facility] 0.1-0.9 " lymphocyte count, blood, automated 2.6 X10E3/UL [facility] 0.7-3.1 " Absolute Neutrophils 1.6 X10E3/UL [facility] 1.4-7.0 " basophils as percent of blood leukocytes 0 % [facility] " eosinophils as percent of blood leukocytes 7 % [facility] " monocytes as percent of blood leukocytes 10 % [facility] " lymphocytes as percent of blood leukocytes 52 % [facility] " neutrophils as percent of blood leukocytes 31 % [facility] " platelet count 211 X10E3/UL [facility] 150-379 " red blood cell distribution width 13.4 % [facility] 12.3-15.4 " mean corpuscular hemoglobin concentration, RBC 34.7 G/DL [facility] 31.5-35.7 " mean corpuscular hemoglobin, RBC 29.7 pg [facility] 26.6-33.0 " mean corpuscular volume, RBC 86 fL [facility] 79-97 " hematocrit, blood 39.5 % [facility] 37.5-51.0 " hemoglobin, blood 13.7 g/dL [facility] 12.6-17.7 " erythrocyte (RBC) count 4.61 X10E6/UL [facility] 4.14-5.80 " leukocyte count, blood 5.1 X10E3/UL [facility] 3.4-10.8 " CD4/CD8 ratio 0.82 [facility] 0.92-3.72 Low " T-suppressor cells (CD8) as percent of blood lymphocytes 38.6 % [facility] 12.0-35.5 High " absolute CD8 1004 [facility] 109-897 High " T-helper cells (CD4) as percent of blood lymphocytes 31.7 % [facility] 30.8-58.5 " T-helper cells (CD4) count 824 /UL [facility] [phone] Neisseria gonorrhoeae DNA probe Negative [facility] Negative " chlamydia DNA probe Negative [facility] Negative Neisseria gonorrhoeae DNA probe Positive [facility] Negative Abnormal " chlamydia DNA probe Negative [facility] Negative Neisseria gonorrhoeae DNA probe Negative [facility] Negative " chlamydia DNA probe Negative [facility] Negative Quantiferon Gold TB blood test for tuberculosis screening Negative [facility] Negative [id number] " Treponema pallidum antibodies, by particle agglutination Positive [facility] Negative Abnormal [id number] " rapid plasma reagin antibody, serum 1:1 [facility] NonRea<1:1 High [id number] " HIV-1RNA, serum, by PCR, quantitative <20 copies/mL [facility] [id number] " immature granulocytes, percentage of total cells, blood 0 % [facility] [id number] " basophil count, absolute 0.0 x10E3/uL [facility] 0.0-0.2 [id number] " Eosinophil Absolute Count 0.1 X10E3/UL [facility] 0.0-0.4 [id number] " monocyte count, blood, automated 0.4 X10E3/UL [facility] 0.1-0.9 [id number] " lymphocyte count, blood, automated 2.3 X10E3/UL [facility] 0.7-3.1 [id number] " Absolute Neutrophils 1.8 X10E3/UL [facility] 1.4-7.0 [id number] " basophils as percent of blood leukocytes 0 % [facility] [id number] " eosinophils as percent of blood leukocytes 3 % [facility] [id number] " monocytes as percent of blood leukocytes 9 % [facility] [id number] " lymphocytes as percent of blood leukocytes 50 % [facility] [id number] " neutrophils as percent of blood leukocytes 38 % [facility] [id number] " platelet count 244 X10E3/UL [facility] 150-379 [id number] " red blood cell distribution width 13.9 % [facility] 12.3-15.4 [id number] " mean corpuscular hemoglobin concentration, RBC 34.5 G/DL [facility] 31.5-35.7 [id number] " mean corpuscular hemoglobin, RBC 29.5 pg [facility] 26.6-33.0 [id number] " mean corpuscular volume, RBC 86 fL [facility] 79-97 [id number] " hematocrit, blood 40.0 % [facility] 37.5-51.0 [id number] " hemoglobin, blood 13.8 g/dL [facility] 12.6-17.7 [id number] " erythrocyte (RBC) count 4.68 X10E6/UL [facility] 4.14-5.80 [id number] " leukocyte count, blood 4.7 X10E3/UL [facility] 3.4-10.8 [id number] " CD4/CD8 ratio 0.95 [facility] 0.92-3.72 [id number] " T-suppressor cells (CD8) as percent of blood lymphocytes 39.5 % [facility] 12.0-35.5 High [id number] " absolute CD8 909 [facility] 109-897 High [id number] " T-helper cells (CD4) as percent of blood lymphocytes 37.6 % [facility] 30.8-58.5 [id number] " T-helper cells (CD4) count 865 /UL [facility] 359-1519 [id number] hepatitis A antibody, total Negative [facility] Negative " hepatitis B core antibody, total Negative [facility] Negative " hepatitis B surface antigen Negative [facility] Negative " Treponema pallidum Ab, serum Reactive [facility] Non Reactive Abnormal " rapid plasma reagin antibody, serum 1:2 [facility] NonRea<1:1 High " hepatitis C antibody, serum <0.1 [facility] 0.0-0.9 " HIV-1/HIV-2 Ab, serum Reactive [facility] Non Reactive Abnormal " HIV-CMIA (Chemiluminescent Microparticle Immuno Assay) Reactive [facility] Non Reactive Abnormal " toxoplasma gondii antibody, IgG <3.0 [facility] 0.0-7.1 " hepatitis B surface antibody Reactive [facility] " HIV-1RNA, serum, by PCR, quantitative 540 /mL [facility] " LDL cholesterol, serum 59 mg/dL [facility] 0-99 " very low density lipoproteins 12 mg/dL [facility] 5-40 " HDL cholesterol, serum 53 mg/dL [facility] >39 " triglyceride, serum, fasting 58 mg/dL [facility] 0-149 " cholesterol, serum 124 mg/dL [facility] 100-199 " alanine aminotransferase (SGPT), serum 14 1/L [facility] 0-44 " aspartate aminotransferase (SGOT), serum 20 1/L [facility] 0-40 " alkaline phosphatase, serum 55 1/L [facility] 39-117 " bilirubin, serum, total 0.5 mg/dL [facility] 0.0-1.2 " albumin/globulin ratio, serum 1.7 [facility] 1.1-2.5 " globulin, serum 2.7 [facility] 1.5-4.5 " albumin, serum 4.6 g/dL [facility] 3.5-5.5 " protein, total, serum 7.3 g/dL [facility] 6.0-8.5 " calcium, serum 9.7 mg/dL [facility] 8.7-10.2 " carbon dioxide, venous blood 25 mmol/L [facility] 18-29 " chloride, serum 102 mmol/L [facility] 97-108 " potassium, serum 4.1 mmol/L [facility] 3.5-5.2 " sodium, serum 141 mmol/L [facility] 134-144 " urea nitrogen/creatinine ratio, serum 12 [facility] 8-19 " eGFR if 140 mL/min/((173/100).m2) [facility] >59 " Estimated Glomerular Filtration Rate (calc) 121 mL/min/((173/100).m2) [facility] >59 " creatinine, serum 0.83 mg/dL [facility] 0.76-1.27 " urea nitrogen, blood 10 mg/dL [facility] 6-20 " blood glucose, random 93 mg/dL [facility] 65-99 " immature granulocytes, percentage of total cells, blood 0 % [facility] " basophil count, absolute 0.0 x10E3/uL [facility] 0.0-0.2 " Eosinophil Absolute Count 0.1 X10E3/UL [facility] 0.0-0.4 " monocyte count, blood, automated 0.5 X10E3/UL [facility] 0.1-0.9 " lymphocyte count, blood, automated 2.5 X10E3/UL [facility] 0.7-3.1 " Absolute Neutrophils 2.5 X10E3/UL [facility] 1.4-7.0 " basophils as percent of blood leukocytes 0 % [facility] " eosinophils as percent of blood leukocytes 2 % [facility] " monocytes as percent of blood leukocytes 9 % [facility] " lymphocytes as percent of blood leukocytes 44 % [facility] " neutrophils as percent of blood leukocytes 45 % [facility] " platelet count 264 X10E3/UL [facility] 150-379 " red blood cell distribution width 14.4 % [facility] 12.3-15.4 " mean corpuscular hemoglobin concentration, RBC 33.8 G/DL [facility] 31.5-35.7 " mean corpuscular hemoglobin, RBC 28.9 pg [facility] 26.6-33.0 " mean corpuscular volume, RBC 86 fL [facility] 79-97 " hematocrit, blood 38.8 % [facility] 37.5-51.0 " hemoglobin, blood 13.1 g/dL [facility] 12.6-17.7 " erythrocyte (RBC) count 4.54 X10E6/UL [facility] 4.14-5.80 " leukocyte count, blood 5.6 X10E3/UL [facility] 3.4-10.8 " CD4/CD8 ratio 0.64 [facility] 0.92-3.72 Low " T-suppressor cells (CD8) as percent of blood lymphocytes 46.0 % [facility] 12.0-35.5 High " absolute CD8 1150 [facility] 109-897 High " T-helper cells (CD4) as percent of blood lymphocytes 29.4 % [facility] 30.8-58.5 Low " T-helper cells (CD4) count 735 /UL [facility] [phone] HISTORY OF IMMUNIZATIONS No Information Available HISTORY OF MEDICATION USE Medication Instructions Dates Provider Comments DOXYCYCLINE MONOHYDRATE 100 MG ORAL CAPSULE Take 1 tablet orally By Mouth Twice a Day - Tracie Wiseman BACTRIM DS 800-160 MG ORAL TABLET 1 tab by mouth twice a day - Ric Yuan AUGMENTIN 875-125 MG ORAL TABLET 1 by mouth twice a day - Ric Yuan DOXYCYCLINE HYCLATE 100 MG ORAL CAPSULE 1 by mouth twice a day - Chery Huston TOBREX 0.3 % OPHTHALMIC SOLUTION instill 1-2 drops in affected eye every 4 hours Denisse Luis MEDROL 4 MG ORAL TABLET THERAPY PACK use as directed - Kenny Moreno NAPROXEN 500 MG ORAL TABLET 1 by mouth twice a day as needed for pain and inflammation Louise Diaz GENVOYA [phone] MG ORAL TABLET 1 tab by mouth daily with food Tracie Wiseman STRIBILD [phone] MG ORAL TABLET 1 By Mouth once a day - Louise Villasenoran SOCIAL HISTORY Date Observation Value Provider drug use, illicit no Lacie Atul " alcohol use no Lacie Atul " social history E&M Single. Not homeless. City: [place]. 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 Highest education level: some college. Gender of partner(s): male. Sexually Active: No. Sex at : male. last sexual encounter was couple of months ago, with vince, male old, HIV neg Previous Travel: None. Lacie Pollard " social history reviewed E&M reviewed today Lacie Pollard " passive cigarette smoke exposure No Lacie Atul " smoking status never smoker Lacie Pollard passive cigarette smoke exposure No Joao E Bam " smoking status never smoker Joao Martha Kuhn " is there any chance that you could be ? No Joao Kuhn " sexual orientation Sotelo Joao Kuhn " drug use, illicit no Joao Kuhn " alcohol use no Joao E Bam " social history E&M Single. Not homeless. City: [place]. 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 Highest education level: some college. Gender of partner(s): male. Sexually Active: No. Sex at : male. last sexual encounter was couple of months ago, with vince, male old, HIV neg Previous Travel: None. Joao Kuhn " social history reviewed E&M reviewed today Joao Kuhn " Exercise Program Referral Bill Kuhn " Weight Management Counseling Provided T Joao Kuhn " Nutrition intervention Bill Kuhn time of call 07/25/2018 3:11 PM Margaret Ann alcohol use no Jannette Wynn " drug use, illicit no Jannette Wynn " is there any chance that you could be ? No Jannette Wynn " smoking status never smoker Jannette Wynn drug use, illicit no Jose Eduardo Beaulieu " alcohol use no Jose Eduardo Beaulieu " social history E&M Single. Not homeless. City: [place]. 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 Highest education level: some college. Gender of partner(s): male. Sexually Active: No. Sex at : male. last sexual encounter was couple of months ago, with vince, male old, HIV neg Previous Travel: None. Jose Eduardo Beaulieu " social history reviewed E&M reviewed today Jose Eduardo Beaulieu " sexual orientation Sotelo Jose Eduardo Beaulieu " passive cigarette smoke exposure No Jose Eduardo Beaulieu " smoking status never smoker Jose Eduardo Christofer " Exercise Program Referral Bill Beaulieu " Weight Management Counseling Provided Bill Beaulieu " Nutrition intervention Bill Beaulieu drug use, illicit no Anne-Marie Walker " alcohol use no Anne-Marie Martínez " social history E&M Single. Not homeless. City: [place]. 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 Highest education level: some college. Gender of partner(s): male. Sexually Active: No. Sex at : male. last sexual encounter was couple of months ago, with vince, male old, HIV neg Previous Travel: None. Anne-Marie Soliz " social history reviewed E&M reviewed today Anne-Marie Pathakrod " sexual orientation Sotelo Anne-Marie Soliz " is there any chance that you could be ? No Anne-Marie Martínez " passive cigarette smoke exposure No Anne-Marie Martínez " smoking status never smoker Anne-Marie Pathakrod time of call 05/13/2018 2:08 PM Yuki Mallory social history E&M Single. Not homeless. City: [place]. 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 Highest education level: some college. Gender of partner(s): male. Sexually Active: No. Sex at : male. last sexual encounter was couple of months ago, with vince, male old, HIV neg Previous Travel: None. Valarie Rader " social history reviewed E&M reviewed today Valarie Rader " drug use, illicit no Valarie Rader " alcohol use no Valarie Rader " passive cigarette smoke exposure No Valarie Rader " smoking status never smoker Valarie Rader drug use, illicit no Lacie Atul " alcohol use no Lacie Atul " social history E&M Single. Not homeless. City: [place]. 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 Highest education level: some college. Gender of partner(s): male. Sexually Active: No. Sex at : male. last sexual encounter was couple of months ago, with vince, male old, HIV neg Previous Travel: None. Lacie Pollard " social history reviewed E&M reviewed today Lacie Atul " passive cigarette smoke exposure No Lacie Atul " smoking status never smoker Lacie Pollard drug use, illicit no Dominick Mcmillan " alcohol use no Dominick Mcmillan " sexual orientation [place]ot[place] Dominick Mcmillan " social history E&M Single. Not homeless. City: [place]. 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 Highest education level: some college. Gender of partner(s): male. Sexually Active: No. Sex at : male. last sexual encounter was couple of months ago, with vince, male old, HIV neg Previous Travel: None. Chery Huston " social history reviewed E&M reviewed today Chery Huston " passive cigarette smoke exposure No Dominick Mcmillan " smoking status never smoker Dominick Mcmillan social history E&M Single. Not homeless. City: [place]. 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 Highest education level: some college. Gender of partner(s): male. Sexually Active: No. Sex at : male. last sexual encounter was couple of months ago, with vince male old, HIV neg Previous Travel: None. Chery Huston " social history reviewed E&M reviewed today Chery Huston " drug use, illicit no Dominick Mcmillan " alcohol use no Dominick Mcmillan " sexual orientation [place] Dominick Mcmillan " passive cigarette smoke exposure No Dominick Mcmillan " smoking status never smoker Dominick Mcmillan time of call 12/30/2017 12:47 PM Jerri Young Exercise Program Referral Bill Tobar " Weight Management Counseling Provided Bill Tobar " Nutrition intervention Bill Tobar " drug use, illicit no Merline Tobar " alcohol use no Merline Tobar " social history E&M Single. Not homeless. City: [place]. 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 Highest education level: some college. Gender of partner(s): male. Sexually Active: No. Sex at : male. last sexual encounter was couple of months ago, with vince, male old, HIV neg Previous Travel: None. Merline Tobar " social history reviewed E&M reviewed today Merline Tobar " passive cigarette smoke exposure No Merline Tobar " smoking status never smoker Merline Tobar time of call 11/05/2017 10:14 AM Thien Vizcaino drug use, illicit no Elizabeth Ramirez " alcohol use no Elizabeth Ramirez " social history E&M Single. Not homeless. City: [place]. 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 Highest education level: some college. Gender of partner(s): male. Sexually Active: No. Sex at : male. last sexual encounter was couple of months ago, with vince, male old, HIV neg Previous Travel: None. Elizabeth Ramirez " social history reviewed E&M reviewed today Elizabeth Ramirez " smoking status never smoker Elizabeth Ramirez " Exercise Program Referral T Elizabeth Ramirez " Weight Management Counseling Provided T Elizabeth Ramirez " Nutrition intervention T Elizabeth Ramirez Exercise Program Referral Bill Luis " Weight Management Counseling Provided Bill Luis " Nutrition intervention T Denisse Luis " is there any chance that you could be ? No Joseph Nila " passive cigarette smoke exposure No Joseph Nila " smoking status never smoker Joseph Nila " alcohol use no Joseph Nila " drug use, illicit no Joseph Nila " social history E&M Single. Not homeless. City: [place]. 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 Highest education level: some college. Gender of partner(s): male. Sexually Active: No. Sex at : male. last sexual encounter was couple of months ago, with vince, male old, HIV neg Previous Travel: None. Joseph Nila " social history reviewed E&M reviewed today Joseph Nila Exercise Program Referral Bill Cummings " Weight Management Counseling Provided Bill Cummings " Nutrition intervention T Scotty Cummings " sexual orientation [place] Joan Martinez " drug use, illicit no Joan J Juan " alcohol use no Joan J Martinez " social history E&M Single. Not homeless. City: [place]. 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 Highest education level: some college. Gender of partner(s): male. Sexually Active: No. Sex at : male. last sexual encounter was couple of months ago, with vince male old, HIV neg Previous Travel: None. Joan Aniket Martinez " social history reviewed E&M reviewed today Joan Dcmez " passive cigarette smoke exposure No Joan Dcmez " smoking status never smoker Joan Martinez drug use, illicit no Lacie Atul " alcohol use no Lacie Atul " social history E&M Single. Not homeless. City: [place]. 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 Highest education level: some college. Gender of partner(s): male. Sexually Active: No. Sex at : male. last sexual encounter was couple of months ago, with vince, male old, HIV neg Previous Travel: None. Lacie Pollard " social history reviewed E&M reviewed today Lacie Pollard " passive cigarette smoke exposure No Lacie Pollard " smoking status never smoker Lacie Pollard " Exercise Program Referral Bill Pollard " Weight Management Counseling Provided Bill Pollard " Nutrition intervention Bill Pollard sexual orientation [place] Meaghan Knox " drug use, illicit no Meaghan Knox " alcohol use no Meaghan Knox " social history E&M Single. Not homeless. City: [place]. 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 Highest education level: some college. Gender of partner(s): male. Sexually Active: No. Sex at : male. last sexual encounter was couple of months ago, with vince, male old, HIV neg Previous Travel: None. Meaghan Knox " social history reviewed E&M reviewed today Meaghan Knox " is there any chance that you could be ? No Meaghan Knox " passive cigarette smoke exposure Yes Meaghan Knox " smoking status never smoker Meaghan Knox drug use, illicit no Nazjely Christofer " alcohol use no Nazjely Christofer " social history E&M Single. Not homeless. City: [place]. 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 Highest education level: some college. Gender of partner(s): male. Sexually Active: No. Sex at : male. last sexual encounter was couple of months ago, with vince, male old, HIV neg Previous Travel: None. Leandra Beaulieu " social history reviewed E&M reviewed today Leandra Beaulieu " is there any chance that you could be ? No Leandra Beaulieu " passive cigarette smoke exposure Yes Leandra Beaulieu " smoking status never smoker Leandra Beaulieu social history E&M Single. Not homeless. City: [place]. 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 Highest education level: some college. Gender of partner(s): male. Sexually Active: No. Sex at : male. last sexual encounter was couple of months ago, with vince, male old, HIV neg Previous Travel: None. Louise Diaz " social history reviewed E&M reviewed today Louise Diaz " drug use, illicit no Leandra Beaulieu " alcohol use no Leandra Beaulieu " is there any chance that you could be ? No Leandra Beaulieu " passive cigarette smoke exposure Yes Leandra Beaulieu " smoking status never smoker Leandra Beaulieu social history E&M Single. Not homeless. City: [place]. 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 Highest education level: some college. Gender of partner(s): male. Sexually Active: No. Sex at : male. last sexual encounter was couple of months ago, with vince, male old, HIV neg Previous Travel: None. Valarie Rader " social history reviewed E&M reviewed today Valarie Rader " alcohol use no Valarie Rader " drug use, illicit no Valarie Angel " smoking status never smoker Valarie Rader " passive cigarette smoke exposure Yes Valarie Rader " is there any chance that you could be ? No Valarie Rader social history E&M Single. Not homeless. City: [place]. 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 Highest education level: some college. Gender of partner(s): male. Sexually Active: No. Sex at : male. last sexual encounter was couple of months ago, with vince, male old, HIV neg Previous Travel: None. Louise Diaz " social history reviewed E&M reviewed today Louise Diaz " drug use, illicit no Leandra Beaulieu " alcohol use no Leandra Beaulieu " is there any chance that you could be ? No Leandra Beaulieu " passive cigarette smoke exposure Yes Leandra Beaulieu " smoking status never smoker Leandra Beaulieu social history E&M Single. Not homeless. City: [place]. 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 Highest education level: some college. Gender of partner(s): male. Sexually Active: No. Sex at : male. last sexual encounter was couple of months ago, with vince, male old, HIV neg Previous Travel: None. Louise Diaz " social history reviewed E&M reviewed today Louise Diaz " alcohol use no Leandra Beaulieu " passive cigarette smoke exposure Yes Leandra Beaulieu " smoking status never smoker Leandra Beaulieu social history E&M Single. Not homeless. City: [place]. 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 Highest education level: some college. Gender of partner(s): male. Sexually Active: No. Sex at : male. last sexual encounter was couple of months ago, with vince, male old, HIV neg Previous Travel: None. Louise Diaz " social history - sexual practice last sexual encounter was couple of months ago, with sanjayod, male old, HIV neg Louise Diaz " social history reviewed E&M reviewed today Louise Diaz " drug use, illicit Previously Louise Diaz " alcohol use no Leandra Beaulieu " passive cigarette smoke exposure Yes Leandra Beaulieu " smoking status never smoker Leandra Beaulieu social history reviewed E&M reviewed today Louise Diaz " drug use, illicit no Leandra Beaulieu " alcohol use no Leandra Beaulieu " passive cigarette smoke exposure Yes Leandra Beaulieu " smoking status never smoker Leandra Beaulieu time of call 03/05/2015 9:38 AM Bin Bernardo sex at male Louise Diaz " social history - sexual practice last sexual encounter was couple of months ago, without conodms, male old, HIV + on meds, both Louise Diaz " home/family situation, assessment lives with his friend and his mother Louise Diaz " 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 Leandra Beaulieu " patient considered to be homeless No Leandra Beaulieu " drug use, illicit Previously Louise Diaz " alcohol use sometimes Leandra Beaulieu " passive cigarette smoke exposure Yes Leandra Beaulieu " smoking status never smoker Leandra Beaulieu FUNCTIONAL STATUS No Information Available MENTAL STATUS Date Observation Value Provider assessment of mood and affect E&M no depression, anxiety, or agitation Tracie Shrikanth " Generalized Anxiety Disorder Questionnaire - Question 2 0 Lacie Pollard " Generalized Anxiety Disorder Questionnaire - Question 1 0 Lacie Pollard assessment of judgment and insight E&M intact Tracie Shrikanth " mental status examination: orientation E&M oriented to time, place, and person Tracie Shrikanth " assessment of mood and affect E&M no depression, anxiety, or agitation Tracie Shrikanth " Generalized Anxiety Disorder Questionnaire - Question 2 0 Joao Kuhn " Generalized Anxiety Disorder Questionnaire - Question 1 0 Joao Kuhn assessment of judgment and insight E&M intact Tracei Shrikanth " mental status examination: orientation E&M oriented to time, place, and person Tracie Shrikanth " assessment of mood and affect E&M no depression, anxiety, or agitation Tracie Shrikanth " Generalized Anxiety Disorder Questionnaire - Question 2 0 Jannette Wynn " Generalized Anxiety Disorder Questionnaire - Question 1 0 Jannette Wynn mental status examination: orientation E&M oriented to time, place, and person Ric Yuan " assessment of mood and affect E&M no depression, anxiety, or agitation Ric Nemecek " Generalized Anxiety Disorder Questionnaire - Question 2 0 Jose Eduardo Beaulieu " Generalized Anxiety Disorder Questionnaire - Question 1 0 Jose Eduardo Beaulieu Generalized Anxiety Disorder Questionnaire - Question 2 0 Anne-Marie Soliz " Generalized Anxiety Disorder Questionnaire - Question 1 0 Anne-Marie Soliz assessment of mood and affect E&M no depression, anxiety, or agitation Eva G Angel " mental status examination: orientation E&M oriented to time, place, and person Eva G Angel " Generalized Anxiety Disorder Questionnaire - Question 2 0 Valarie Rader " Generalized Anxiety Disorder Questionnaire - Question 1 0 Valarie Rader assessment of judgment and insight E&M intact Tracie Shrikanth " mental status examination: orientation E&M oriented to time, place, and person Tracie Shrikanth " assessment of mood and affect E&M no depression, anxiety, or agitation Tracie Shrikanth " Generalized Anxiety Disorder Questionnaire - Question 2 0 Lacie Pollard " Generalized Anxiety Disorder Questionnaire - Question 1 0 Lacie Pollard Generalized Anxiety Disorder Questionnaire - Question 2 0 Dominick Mcmillan " Generalized Anxiety Disorder Questionnaire - Question 1 0 Dominick Mcmillan " assessment of judgment and insight E&M intact Chery Huston " mental status examination: orientation E&M oriented to time, place, and person Chery Huston " assessment of mood and affect E&M no depression, anxiety, or agitation Chery Robel assessment of judgment and insight E&M intact Chery Robel " mental status examination: orientation E&M oriented to time, place, and person Chery Robel " assessment of mood and affect E&M no depression, anxiety, or agitation Cherydulce maria Huston " Generalized Anxiety Disorder Questionnaire - Question 2 0 Dominick Mcmillan " Generalized Anxiety Disorder Questionnaire - Question 1 0 Dominick Rodriguezo assessment of mood and affect E&M no depression, anxiety, or agitation Kenny Moreno " Generalized Anxiety Disorder Questionnaire - Question 2 0 Merline Tobar " Generalized Anxiety Disorder Questionnaire - Question 1 0 Merline Tboar mental status examination: orientation E&M oriented to time, place, and person Ric Yuan " assessment of mood and affect E&M no depression, anxiety, or agitation Ric Yuan " Generalized Anxiety Disorder Questionnaire - Question 2 0 Elziabeth Ramirez " Generalized Anxiety Disorder Questionnaire - Question 1 0 Elizabeth Ramirez mental status examination: orientation E&M oriented to time, place, and person Denisse Mored " assessment of mood and affect E&M no depression, anxiety, or agitation Denisse Luis " Generalized Anxiety Disorder Questionnaire - Question 2 0 Joseph Nila " Generalized Anxiety Disorder Questionnaire - Question 1 0 Joseph Dotson assessment of mood and affect E&M no agitation Scotty Emiliano " Generalized Anxiety Disorder Questionnaire - Question 2 0 Joan Martinez " Generalized Anxiety Disorder Questionnaire - Question 1 0 Joan Martinez assessment of judgment and insight E&M intact Tracie Shrikanth " mental status examination: orientation E&M oriented to time, place, and person Tracie Shrikanth " assessment of mood and affect E&M no depression, anxiety, or agitation Tracie Shrikanth " Generalized Anxiety Disorder Questionnaire - Question 2 0 Lacie Pollard " Generalized Anxiety Disorder Questionnaire - Question 1 0 Lacie Pollard assessment of judgment and insight E&M intact Tracie Shrikanth " mental status examination: orientation E&M oriented to time, place, and person Tracie Shrikanth " assessment of mood and affect E&M no depression, anxiety, or agitation Tracie Shrikanth " Generalized Anxiety Disorder Questionnaire - Question 2 0 Meaghan Knox " Generalized Anxiety Disorder Questionnaire - Question 1 0 Meaghan Knox Generalized Anxiety Disorder Questionnaire - Question 2 0 Leandra Beaulieu " Generalized Anxiety Disorder Questionnaire - Question 1 0 Leandra Beaulieu Generalized Anxiety Disorder Questionnaire - Question 2 0 Leandra Beaulieu " Generalized Anxiety Disorder Questionnaire - Question 1 0 Leandra Beaulieu Generalized Anxiety Disorder Questionnaire - Question 2 0 Valarie Rader " Generalized Anxiety Disorder Questionnaire - Question 1 0 Valarie Rader Generalized Anxiety Disorder Questionnaire - Question 2 0 Leandra Beaulieu " Generalized Anxiety Disorder Questionnaire - Question 1 0 Leandra Beaulieu Generalized Anxiety Disorder Questionnaire - Question 2 0 Leandra Beaulieu " Generalized Anxiety Disorder Questionnaire - Question 1 0 Leandra Beaulieu Generalized Anxiety Disorder Questionnaire - Question 2 0 Leandra Beaulieu " Generalized Anxiety Disorder Questionnaire - Question 1 0 Leandra Beaulieu Generalized Anxiety Disorder Questionnaire - Question 2 0 Leandra Beaulieu " Generalized Anxiety Disorder Questionnaire - Question 1 0 Leandra Beaulieu Generalized Anxiety Disorder Questionnaire - Question 2 0 Lexiephil Christofer " Generalized Anxiety Disorder Questionnaire - Question 1 0 Leandra [facility]ul[facility] EQUIPMENT No Information Available FAMILY HISTORY No Information Available INSURANCE PROVIDERS Payer name Policy type / Coverage type Covered alliance party ID *Silas White 0-100% Other [id number] Sliding Fee - Cat 1 [employer] insurance [employer] [id number] FAMILY PLANNING*TITLE V Medicaid Primary Health Care [place] Other *Silas White 0-100% Other *Silas White 0-100% Other FAMILY PLANNING*TITLE V Medicaid Primary Health Care [place] Other *Silas White 0-100% Other FAMILY PLANNING*TITLE V Medicaid Primary Health Care [place] Other *Silas White 0-100% Other *Silas White 0-100% Other [id number] Self Pay Self pay FAMILY PLANNING*TITLE V Medicaid Primary Health Care [place] Other *Silas White 0-100% Other Sliding Fee - Cat 1 [employer] insurance [employer] [id number] Silas White 300-500% Other [id number] Silas White up to 300% Other [id number] Primary Health Care [place] Other Family Planning/[facility] Medicaid Sliding Fee Scale Commercial insurance company ADVANCE DIRECTIVES Name Date DISCUSSED - NO DECISION MADE TREATMENT PLAN Date Name Ct/GC LOLIS, Pharyngeal Ct/GC LOLIS, Rectal Chlamydia/GC Amplification (Urine) Chlamydia/GC Amplification (Urine) Chlamydia/GC Amplification (Urine) HCV Antibody RPR, Rfx Qn RPR/Confirm TP Comp. Metabolic Panel (14) CBC With Differential/Platelet CD4/CD8 Ratio Profile RNA, Real Time PCR (Graph) Vitamin B12 and Folate Iron and TIBC Ferritin, Serum Chlamydia/GC Amplification (Urine) RPR, Rfx Qn RPR/Confirm TP CBC With Differential/Platelet Chlamydia/GC Amplification (Urine) Ct/GC LOLIS, Pharyngeal Ct/GC LOLIS, Rectal RPR, Rfx Qn RPR/Confirm TP HCV Antibody HBsAg Screen Ct, Ng, Trich vag by LOLIS (APTIMA) Chlamydia/GC Amplification (Urine) Ct/GC LOLIS, Rectal Ct/GC LOLIS, Pharyngeal RPR, Rfx Qn RPR/Confirm TP Comp. Metabolic Panel (14) CBC With Differential/Platelet CD4/CD8 Ratio Profile RNA, Real Time PCR (Graph) Chlamydia/GC Amplification HBsAg Screen HCV Antibody Lipid Panel RPR, Rfx Qn RPR/Confirm TP Comp. Metabolic Panel (14) CBC With Differential/Platelet CD4/CD8 Ratio Profile RNA, Real Time PCR (Graph) Lipid Panel RPR, Rfx Qn RPR/Confirm TP Comp. Metabolic Panel (14) CBC With Differential/Platelet RNA, Real Time PCR (Graph) CD4/CD8 Ratio Profile RPR Chlamydia/GC Amplification (Urine) Ct/GC LOLIS, Rectal Ct/GC LOLIS, Pharyngeal Chlamydia/GC Amplification (Urine) Chlamydia/GC Amplification Ct/GC LOLIS, Pharyngeal Ct/GC LOLIS, Rectal RPR, Rfx Qn RPR/Confirm TP Comp. Metabolic Panel (14) CBC With Differential/Platelet CD4/CD8 Ratio Profile RNA, Real Time PCR (Graph) Chlamydia/GC Amplification (Urine) QuantiFERON - TB Gold ( Client Incubated ) HCV Antibody RPR, Rfx Qn RPR/Confirm TP Comp. Metabolic Panel (14) CBC With Differential/Platelet CD4/CD8 Ratio Profile RNA, Real Time PCR (Graph) RPR, Rfx Qn RPR/Confirm TP Comp. Metabolic Panel (14) CBC With Differential/Platelet CD4/CD8 Ratio Profile RNA, Real Time PCR (Graph) Testosterone,Free and Total RPR, Rfx Qn RPR/Confirm TP Comp. Metabolic Panel (14) CBC With Differential/Platelet CD4/CD8 Ratio Profile Lipid Panel RNA, Real Time PCR (Graph) RPR, Rfx Qn RPR/Confirm TP Comp. Metabolic Panel (14) CD4/CD8 Ratio Profile RNA, Real Time PCR (Graph) Lipid Panel RPR, Rfx Qn RPR/Confirm TP Comp. Metabolic Panel (14) CD4/CD8 Ratio Profile RNA, Real Time PCR (Graph) Chlamydia/GC Amplification Chlamydia/GC Amplification Comp. Metabolic Panel (14) CD4/CD8 Ratio Profile RNA, Real Time PCR (Graph) QuantiFERON TB Gold (In Tube) RPR, Rfx Qn RPR/Confirm TP CD4/CD8 Ratio Profile RNA, Real Time PCR (Graph) HLA B5701 Test GenoSure PRIme(SM) Toxoplasma gondii Ab, IgG, Qn RPR RNA, Real Time PCR (Graph) Lipid Panel HIV 1/2 ANTIGEN/ANTIBODY, FOURTH GENERATION W/RFL HCV Antibody HBsAg Screen Hep B Surface Ab Hep B Core Ab, Tot Hep A Ab, Total Comp. Metabolic Panel (14) CD4/CD8 Ratio Profile - - Injection, ceftriaxone sodium, per 250 mg Est Patient Exp Problem - 08634 Est Patient Detailed - 26508 Vision Est Patient Detailed - 24018 IM Injection of Antibiotic Injection, ceftriaxone sodium, per 250 mg Oral / SL / OH Azithromycin oral Ofc Vst, Est Level III IM Injection of Antibiotic Injection, ceftriaxone sodium, per 250 mg Oral / SL / OH Azithromycin oral Est Patient Exp Problem - 58234 Handling of specimen for transfer Venipuncture Est Patient Problem Focus - 98704 Injection, ceftriaxone sodium, per 250 mg Azithromycin oral Est Patient Detailed - 68097 Influenza 4 Valent 3yrs+ IM - Declined Est Patient Exp Problem - 13074 Est Patient Exp Problem - 05151 Est Patient Exp Problem - 32975 IM or SQ Injection Injection, ceftriaxone sodium, per 250 mg IM or SQ Injection Injection, ceftriaxone sodium, per 250 mg Oral / SL / OH Azithromycin oral Ofc Vst, Est Level IV Ofc Vst, Est Level III Destruction Benign Lesion - 1 Est Patient Exp Problem - 37672 Azithromycin oral Injection, ceftriaxone sodium, per 250 mg Est Patient Exp Problem - 12066 Est Patient Exp Problem - 60063 Influenza 4 Valent 3yrs+ IM - Declined Dental - Internal Ofc Vst, Est Level III Ofc Vst, Est Level III Xray - Knee - 3 Views - InHouse Xray - Shoulder - InHouse Ofc Vst, Est Level III Ofc Vst, Est Level III Est Patient Nurse - Only Visit - 58238 Hepatitis A - Adult Admin of Vaccine - Injection - 1 [facility] Ofc Vst, Est Level III [facility] Ofc Vst, Est Level II Pneumovax Vaccine [id number] Primary [facility] Est Patient Exp Problem - 59105 [facility] Ofc Vst, New Level III [facility] Hepatitis A - Adult Handling of specimen for transfer Venipuncture HISTORY OF PROCEDURES Procedure Date Procedure Name Provider Procedure Notes Status Injection, ceftriaxone sodium, per 250 mg Tracie Wiseman completed IM Injection of Antibiotic Ric Yuan completed Injection, ceftriaxone sodium, per 250 mg Ric Yuan completed Oral / SL / [place] Ric Yuan completed Azithromycin oral Ric Yuan completed IM Injection of Antibiotic Magdalene Steiner completed Injection, ceftriaxone sodium, per 250 mg Magdalene Steiner completed Oral / SL / OH Magdalene Steiner completed Azithromycin oral Magdalene Steiner completed Venipuncture Magdalene Steiner completed Injection, ceftriaxone sodium, per 250 mg Eva G Angel completed Azithromycin oral Eva G Angel completed Influenza 4 Valent 3yrs+ IM - Declined Tracie Wiseman completed IM or SQ Injection Kenny Moreno completed Injection, ceftriaxone sodium, per 250 mg Kenny Moreno [facility]: [id number]. completed IM or SQ Injection Ric Etienneyara completed Injection, ceftriaxone sodium, per 250 mg Ric Lissy completed Oral / SL / [place] Ric Lissy completed Azithromycin oral Ric Lissy completed Destruction Benign Lesion - 1 Denisse Luis completed Azithromycin oral Scotty Cummings [facility]: [id number]. completed Injection, ceftriaxone sodium, per 250 mg Scotty Cummings [facility]: [id number]. completed Influenza 4 Valent 3yrs+ IM - Declined Tracie Bowen completed [facility] Selvy Sharma Time spent with patient:46 completed Primary [facility] Service [facility] Selvy Sharma Time spent with patient:30 completed Primary Care Service [facility]age Selvy Sharma Time spent with patient:12 completed Primary Care Service Linkage Selvy Sharma Time spent with patient:47 completed Primary [facility] Service Linkage Selvy Sharma Time spent with patient:64 completed Primary [facility] Service [facility]age Selvy Sharma Time spent with patient:27 completed Primary Care Service Linkage Selvy Sharma Time spent with patient:24 completed Primary Care Service Linkage Selvy Sharma Time spent with patient:24 completed [facility] Service [facility]age Selvy Sharma Time spent with patient:52 completed [facility] Selvy Sharma Time spent with patient:21 completed [facility] Selvy Sharma Time spent with patient:20 completed Venipuncture Louise Diaz completed GOALS No Information Available HEALTH CONCERNS No Information Available
--- OUTSIDE RECORDS SUMMARY | 2019-06-02 19:47 | XMS REPORT ---
Author Author [facility] Address Unknown Phone Unavailable Care Team Providers Care Boiler Out Name Role Phone Unavailable Unavailable Problems This patient has no known problems. Allergies, Adverse Reactions, Alerts This patient has no known allergies or adverse reactions. Medications This patient has no known medications. Encounters Start Date/Time End Date/Time Encounter Type Admission Type Attending Clinicians Care Facility Care Department Encounter ID 2018-10-09 22:39:00 2018-10-09 22:39:00 Emergency E [facility] [id number]
--- OUTSIDE RECORDS SUMMARY | 2019-06-02 19:47 | XMS REPORT ---
Author Author Admin, [place] Organization Unknown Address Unknown Phone Unavailable PROBLEMS [...] Syphilis active Louise Diaz Cholesterol, Screening active Louise Diaz Disorder, endocrine NOS active Louise Diaz Knee joint pain, left active Louise Diaz Shoulder joint pain, right active Louise Diaz Preventive health care active Louise Diaz Need for prophylactic immunotherapy completed - Louisejesus Diaz Gonorrhea of pharynx active Tracie Shrikanth Syphilis completed - Louisejesus Diaz Immunization update active Louise Diaz HIV infection active John Villatoro ENCOUNTERS Date Type Provider Location Encounter Diagnosis - Ambulatory Encounter Tracie Shrikanth Tracie Shrikanth [facility] Adult Medicine UNK - Ambulatory Encounter Tracie Shrikanth Tracie Shrikanth [facility] Adult Medicine UNK - Ambulatory Encounter Lacie Pollard [facility] Adult Medicine UNK - Ambulatory Encounter Joao Kuhn [facility] Adult Medicine UNK - Ambulatory Encounter Traciealem Wiseman [facility] Adult Medicine Gonorrhea of pharynxVenereal disease of the anus and rectum due to Chlamydia trachomatisGonococcal infection of anus and rectum - Ambulatory Encounter Tracie Pranavh Tracie Spenceikanth Link[facility]ic [facility] Adult Medicine UNK - Ambulatory Encounter Tracie Pranavh Tracie Rockh [facility] Adult Medicine UNK - Ambulatory Encounter Traciealem Rockh Tracie Pollard [facility] Adult Medicine UNK - Ambulatory Encounter Tracie Pranavh Tracie Rockh [employer] Adult Medicine UNK - Ambulatory Encounter Tracie Bowen Rockh [facility] Adult Medicine UNK - Ambulatory Encounter Traciealem Kuhn [facility] Adult Medicine Chlamydial infectionGonorrhea - Ambulatory Encounter Traciealem Rockh [employer] [facility] Adult Medicine UNK - Ambulatory Encounter Margaret Ann [facility] Public Health Services UNK - Ambulatory Encounter Tracie Cieranth Tracie Vangnth [facility] Adult Medicine UNK - Ambulatory Encounter Tracie Cieranth Tracie Cieranth [facility] Adult Medicine UNK - Ambulatory Encounter Tracie Cieranth Tracie Bowen Ann [facility] Adult Medicine Anemia - Ambulatory Encounter Tracie Wiseman [facility] Adult [facility] UNK - Ambulatory Encounter Elizabeth Ramsay [facility] Adult Medicine UNK - Ambulatory Encounter Ric Yuan [facility] Adult Medicine UNK - Ambulatory Encounter Ric Yuan [facility] Adult Medicine UNK - Ambulatory Encounter Ric Yuan Jose Eduardo Beaulieu [facility] Adult Medicine UNK - Ambulatory Encounter Tracie Fernandes [facility] Adult Medicine UNK - Ambulatory Encounter Patricia Warner [facility] General Lot Attendant UNK - Ambulatory Encounter Magdalene Steiner [facility] Adult Medicine UNK - Ambulatory Encounter Magdalene Steiner [facility] Adult Medicine UNK - Ambulatory Encounter Magdalene Steiner [facility] Adult Medicine UNK - Ambulatory Encounter Lisa Sorensen [facility] Adult Medicine UNK - Ambulatory Encounter Magdalene Steiner [facility] Adult Medicine UNK - Ambulatory Encounter Magdalene Soliz [facility] Adult Medicine UNK - Ambulatory Encounter [facility] Care Coordination Desktop Yuki Fernandes [facility] UNK - Ambulatory Encounter Eva Rader [facility] Adult Medicine UNK - Ambulatory Encounter Serena Mejia [facility] Services UNK - Ambulatory Encounter Eva Ortiz [facility] LM Adult Medicine UNK - Ambulatory Encounter Tracie Wiseman [facility] LM Adult Medicine UNK - Ambulatory Encounter Eva Rader [facility] Adult Medicine UNK - Ambulatory Encounter Patricia Mcdonald [facility] Adult Medicine UNK - Ambulatory Encounter Remigio Warner [facility] Adult Medicine UNK - [facility] - Ambulatory Encounter Tracie Wiseman [facility] Adult Medicine UNK - Ambulatory Encounter Tracie Pollard [facility] Adult Medicine UNK - Ambulatory Encounter Tracie Wiseman [facility] Adult Medicine UNK - Ambulatory Encounter Tracie Wiseman [facility] Adult Medicine UNK - Ambulatory Encounter Tracie Pollard [facility] Adult Medicine UNK - Ambulatory Encounter Chery Huston [facility] Adult Medicine UNK - Ambulatory Encounter Chery Mcmillan [facility] Adult Medicine Abscess - Ambulatory Encounter Chery Huston [facility] Adult Medicine UNK - Ambulatory Encounter Chery Huston [facility] Adult Medicine UNK - Ambulatory Encounter Chery Mcmillan [facility] Adult Medicine UNK - Ambulatory Encounter Lacie [facility] UNK - Ambulatory Encounter Kenny Moreno [facility] Adult Medicine UNK - Ambulatory Encounter Kenny Moreno [facility] Adult Medicine UNK - Ambulatory Encounter Kenny Moreno [facility] Adult Medicine UNK - Ambulatory Encounter Kenny Quispecy Amadou [facility] Adult Medicine Epididymitis, left - Ambulatory Encounter [facility] UNK - Ambulatory Encounter Tracie Vizcaino [facility] UNK - Ambulatory Encounter Elizabeth Ramsay [facility] Adult Medicine UNK - Ambulatory Encounter Ric Yuan [facility] LM Adult Medicine UNK - Ambulatory Encounter Ric Yuan [facility] Adult Medicine UNK - Ambulatory Encounter Ric Ramsay [facility] Adult Medicine Urethritis - Ambulatory Encounter Denisse Luis Valarie Rader [facility] Adult Medicine UNK - Ambulatory Encounter Denisse Luis [facility] Adult Medicine UNK - Ambulatory Encounter Denisse Luis [facility] Adult Medicine UNK - Ambulatory Encounter Denisse Ruiz Nila [facility] Adult Medicine Conjunctivitis, acute, rightWart - Ambulatory Encounter Tracie Wiseman [facility] LM Adult Medicine UNK - Ambulatory Encounter Scotty Cummings [facility] LM Adult Medicine UNK - Ambulatory Encounter Scotty Cummings [facility] Adult Medicine UNK - Ambulatory Encounter Scotty Martinez [facility] Adult Medicine Exposure to STD - Ambulatory Encounter Tracie Wiseman Nancy Reyes [facility] UNK - Ambulatory Encounter Remigio Alexis [facility] Adult Medicine UNK - Ambulatory Encounter Tracie Wiseman [facility] Adult Medicine UNK - Ambulatory Encounter Traciealem Pollard [facility] Adult Medicine UNK - Ambulatory Encounter Traciealem Wiseman [facility] LM Adult Medicine UNK - Ambulatory Encounter Traciealem Wiseman [facility] LM Adult Medicine UNK - Ambulatory Encounter Oumar Marquez [facility] General Lot Attendant UNK - Ambulatory Encounter Tracie Wiseman [facility] Adult Medicine UNK - Ambulatory Encounter Traciealem Knox LM Adult Medicine Sciatica - Ambulatory Encounter Dagoberto Romero [facility] Adult Medicine UNK - Ambulatory Encounter Tracie Wiseman [facility] Adult Medicine UNK - Ambulatory Encounter [facility] UNK - Ambulatory Encounter Louise Diaz [facility] Adult Medicine UNK - Ambulatory Encounter Louise Beaulieu [facility] Adult Medicine Syphilis - Ambulatory Encounter Louise HamptonLograndee [facility] Adult Medicine UNK - Ambulatory Encounter Rondayelitza LamRoosevelt [facility] LM Adult Medicine UNK - Ambulatory Encounter Louise Diaz [facility] LM Adult Medicine UNK - Ambulatory Encounter Florencia Armida Diaz [facility] Adult Medicine UNK - Ambulatory Encounter Sabrina Payton [facility] Diaz [facility] Adult Medicine UNK - Ambulatory Encounter Patricia Warner [facility] General Lot Attendant UNK - Ambulatory Encounter Louise Diaz [facility] Adult Medicine UNK - Ambulatory Encounter Louise Beaulieu [facility] Adult Medicine Disorder, endocrine NOSCholesterol, Screening - Ambulatory Encounter Leandra Beaulieu [facility] Adult Medicine UNK - Ambulatory Encounter Louise Diaz [facility] LM Adult Medicine UNK - Ambulatory Encounter Louise Diaz [facility] LM Adult Medicine UNK - Ambulatory Encounter Leandra Beaulieu [facility] Adult Medicine UNK - Ambulatory Encounter Leandra Beaulieu LM Adult Medicine UNK - Ambulatory Encounter Leandra Beaulieu LM Adult Medicine UNK - Ambulatory Encounter Louise Diaz LM Adult Medicine UNK - Ambulatory Encounter Louise Diaz [facility] LM Adult Medicine UNK - Ambulatory Encounter Louise Diaz [employer] Leandra Beaulieu [facility] Adult Medicine UNK - Ambulatory Encounter Louise Chirinos [facility] Adult Medicine UNK - Ambulatory Encounter Louise Chirinos [facility] Adult Medicine UNK - Ambulatory Encounter Louise Diaz [facility] Adult Medicine UNK - Ambulatory Encounter Louise Rader [facility] Adult Medicine SyphilisGonorrhea of pharynxNeed for prophylactic immunotherapyShoulder joint pain, rightKnee joint pain, left - Ambulatory Encounter Louise Diaz [employer] [facility] Adult Medicine UNK - Ambulatory Encounter Patricia Warner [facility] General Lot Attendant UNK - Ambulatory Encounter Patricia Warner [facility] General Lot Attendant UNK - Ambulatory Encounter Patriica Warner [facility] General Lot Attendant UNK - Ambulatory Encounter Patricia Warner [facility] General Lot Attendant UNK - Ambulatory Encounter Louise HamptonLogic LM Adult Medicine UNK - Ambulatory Encounter Louise Diaz [facility] Adult Medicine UNK - Ambulatory Encounter Louise Beaulieu [facility] Adult Medicine Preventive health care - Ambulatory Encounter Neal Ribera [facility] Adult Medicine UNK - Ambulatory Encounter Louise Diaz [facility] LM Adult Medicine UNK - Ambulatory Encounter Ronda Albert [facility] Adult Medicine Need for prophylactic immunotherapy - Ambulatory Encounter Remigio Mistry [facility] Adult Medicine UNK - Ambulatory Encounter Tanya Shrama [facility] General Lot Attendant UNK - Ambulatory Encounter [facility] UNK - Ambulatory [facility]counter [facility] Lot Attendant UNK - Ambulatory Encounter [facility] General Lot Attendant UNK - Ambulatory Encounter Paigekathleen [facility] General Lot Attendant UNK - Ambulatory Encounter Paigekathleen [facility] General Lot Attendant UNK - Ambulatory Encounter Louise Beaulieu [facility] Adult Medicine Gonorrhea of pharynx - Ambulatory Encounter [facility] Adult [facility] UNK - Ambulatory Encounter Leandra Diaz [facility] Adult Medicine UNK - Ambulatory Encounter Louise Diaz [facility] Adult Medicine UNK - Ambulatory Encounter Louise [facility] Adult [facility] UNK - Ambulatory Encounter Louise [facility] Adult [facility] UNK - Ambulatory Encounter Tanya [facility] General Lot Attendant UNK - Ambulatory Encounter Louise Diaz [facility] Adult Medicine UNK - Ambulatory Encounter Louise Diaz [facility] Adult Medicine UNK - Ambulatory Encounter [facility] Shirin Beaulieu [facility] Adult Medicine UNK - Ambulatory Encounter Zak Roy [facility] Adult Medicine UNK - [facility] - Ambulatory Encounter Remigio Mistry [facility] Adult Medicine UNK - Ambulatory Encounter Louise Diaz LM Adult Medicine UNK - Ambulatory Encounter Tanya Sharma [facility] General Lot Attendant UNK - Ambulatory Encounter Tanya Sharma [facility] General Lot Attendant UNK - Ambulatory Encounter Louise Diaz LM Adult Medicine UNK - Ambulatory Encounter Tanya Sharma [facility] General Lot Attendant UNK - Ambulatory Encounter Louise Diaz LM Adult Medicine UNK - Ambulatory Encounter Louise Beaulieu [facility] Adult Medicine UNK - Ambulatory Encounter Zak Roy LM Adult Medicine UNK - Ambulatory Encounter Zak Roy LM Adult Medicine UNK - Ambulatory Encounter [facility] - Ambulatory Encounter Paigejorge Sharma [facility] General Lot Attendant UNK - Ambulatory Encounter Bin Chang [facility] Adult Medicine UNK - Ambulatory Encounter Tanya [facility] General Lot Attendant UNK - Ambulatory Encounter Zak Roy LM Adult Medicine UNK - Ambulatory Encounter Zak Roy LM Adult Medicine UNK - Ambulatory Encounter Louise Diaz LM Adult Medicine UNK - Ambulatory Encounter Louise Beaulieu [facility] Adult Medicine Immunization updateSyphilis - Ambulatory Encounter Louise Diaz LM Adult Medicine UNK - Ambulatory Encounter Louise Diaz [facility] Adult Medicine UNK - Ambulatory Encounter Louise Gil Diaz [facility] UNK - Ambulatory Encounter Louise Diaz John Villatoro [facility] Adult Medicine HIV infection VITAL SIGNS Date Observation Value Provider blood pressure, diastolic 76 mm[Hg] Lacie Pollard " blood pressure, systolic 127 mm[Hg] Lacie Pollard " oxygen saturation, oximetry 97 % Lacie Pollard " pulse rate E&M 73 /min Lacie Pollard " temperature E&M 98.0 [degF] Lacie Pollard " weight E&M 159 lbs. Lacie Pollard " weight in kilograms E&M 72.27 kg Lacie Pollard " method used to obtain blood pressure automatic Lacie Pollard " Blood Pressure Position 01 sitting Lacie Pollard " blood pressure, site #1 left arm Lacie Atul " temperature site oral Lacie Atul " height E&M 68 [in_i] Lacie Pollard " height in centimeters E&M 172.72 cm Lacie Pollard temperature E&M 98.4 [degF] Joao E Bam " blood pressure, diastolic 75 mm[Hg] Joao E Bam " blood pressure, systolic 113 mm[Hg] Joao E Bam " oxygen saturation, oximetry 97 % Joao E Bam " pulse rate E&M 76 /min Joao E Bam " weight E&M 182 lbs. Joao E Bam " weight in kilograms E&M 82.73 kg Joao E Bam " Blood Pressure Position 01 sitting Joao E Bam " blood pressure, site #1 left arm Joao E Bam " method used to obtain blood pressure manual Joao E Bam " temperature site oral Joao E Bam " height E&M 68 [in_i] Joao E Bam " height in centimeters E&M 172.72 cm Joao E Bam oxygen saturation, oximetry 98 % Jannette Wynn " method used to obtain blood pressure s Jannette Wynn " Blood Pressure Position 01 laying Jannette Wynn " blood pressure, site #1 right arm Jannette Wynn " blood pressure, diastolic 88 mm[Hg] Jannette Wynn " blood pressure, systolic 144 mm[Hg] Jannette Wynn " pulse rate E&M 91 /min Jannette Wynn " temperature site oral Jannette Wynn " temperature E&M 98.3 [degF] Jannette Wynn " weight E&M 162 lbs. Jannette Wynn " weight in kilograms E&M 73.64 kg Jannette Wynn " height E&M 68 [in_i] Jannette Wnyn " height in centimeters E&M 172.72 cm Jannette Wynn oxygen saturation, oximetry 99 % Jose Eduardo Beaulieu " blood pressure, diastolic 85 mm[Hg] Jose Eduardo Beaulieu " blood pressure, systolic 129 mm[Hg] Jose Eduardo Beaulieu " pulse rate E&M 91 /min Jose Eduardo Beaulieu " temperature E&M 98.0 [degF] Jose Eduardofemi Beaulieu " weight E&M 162 lbs. Jose Eduardo Beaulieu " weight in kilograms E&M 73.64 kg Jose Eduardo Beaulieu " blood pressure, site #1 left arm Jose Eduardo Beaulieu " Blood Pressure Position 01 sitting Jose Eduardo Beaulieu " method used to obtain blood pressure automatic Jose Eduardo Beaulieu " temperature site oral Jose Eduardo Beaulieu " height E&M 68 [in_i] Jose Eduardo Beaulieu " height in centimeters E&M 172.72 cm Jose Eduardo Beaulieu oxygen saturation, oximetry 98 % Anne-Marie Martínez " blood pressure, diastolic 96 mm[Hg] Anne-Marie Martínez " blood pressure, systolic 129 mm[Hg] Anne-Marie Martínez " pulse rate E&M 94 /min Anne-Marie Martínez " temperature E&M 98.1 [degF] Anne-Marie Martínez " weight E&M 170.13 lbs. Anne-Marie Ashburnham " weight in kilograms E&M 77.33 kg Anne-Marie Martínez " method used to obtain blood pressure automatic Anne-Marie Ashburnham " Blood Pressure Position 01 sitting Anne-Marie Ashburnham " blood pressure, site #1 left arm Anne-Marie Martínez " temperature site oral Anne-Marie Martínez " height E&M 68 [in_i] Anne-Marie Martínez " height in centimeters E&M 172.72 cm Anne-Marie Ashburnham oxygen saturation, oximetry 98 % Valarie Rader " blood pressure, diastolic 91 mm[Hg] Valarie Prasanth " blood pressure, systolic 142 mm[Hg] Valarie Prasanth " pulse rate E&M 85 /min Valarie Prasanth " temperature E&M 98.5 [degF] Valarie Prasanth " weight E&M 164.25 lbs. Valarie Prasanth " weight in kilograms E&M 74.66 kg Valarie Prasanth " blood pressure, site #1 right arm Valarie Prasanth " Blood Pressure Position 01 sitting Valarie Prasanth " method used to obtain blood pressure automatic Valarie Prasanth " temperature site oral Valarie Prasanth " height E&M 68 [in_i] Valarie Prasanth " height in centimeters E&M 172.72 cm Valarie Prasanth method used to obtain blood pressure automatic Lacie Atul " Blood Pressure Position 01 sitting Lacieyelitza Pollard " blood pressure, site #1 left arm Lacie Atul " blood pressure, diastolic 88 mm[Hg] Lacie Pollard " blood pressure, systolic 143 mm[Hg] Lacie Pollard " oxygen saturation, oximetry 99 % Lacie Pollard " pulse rate E&M 88 /min Lacie Atul " temperature site oral Lacie Atul " temperature E&M 98.3 [degF] Lacieyelitza Pollard " weight E&M 161.13 lbs. Lacie Atul " weight in kilograms E&M 73.24 kg Lacie Pollard " height E&M 68 [in_i] Lacie Pollard " height in centimeters E&M 172.72 cm Lacie Pollard height E&M 68 [in_i] Dominick Mcmillan " height in centimeters E&M 172.72 cm Dominick Mcmillan " weight E&M 155.70 lbs. Chery Huston " weight in kilograms E&M 70.77 kg Chery Huston " oxygen saturation, oximetry 98 % Dominick Mcmillan " method used to obtain blood pressure automatic Dominick Mcmillan " Blood Pressure Position 01 sitting Dominick Mcmillan " blood pressure, site #1 right arm Dominick Mcmillan " blood pressure, diastolic 83 mm[Hg] Dominick Mcmillan " blood pressure, systolic 133 mm[Hg] Dominick Mcmillan " respiratory rate E&M 12 /min Dominick Mcmillan " pulse rate E&M 86 /min Dominick Mcmillan " temperature site oral Dominick Mcmillan " temperature E&M 98.4 [degF] Dominick Mcmillan oxygen saturation, oximetry 98 % Dominick Mcmillan " method used to obtain blood pressure automatic Dominick Mcmillan " Blood Pressure Position 01 sitting Dominick Mcmillan " blood pressure, site #1 right arm Dominick Mcmillan " blood pressure, diastolic 88 mm[Hg] Dominick Mcmillan " blood pressure, systolic 131 mm[Hg] Dominick Mcmillan " respiratory rate E&M 12 /min Dominick Mcmillan " pulse rate E&M 68 /min Dominick Mcmillan " temperature site oral Dominick Mcmillan " temperature E&M 98.0 [degF] Dominick Mcmillan " weight E&M 176 lbs. Dominick Mcmillan " weight in kilograms E&M 80 kg Domincik Mcmillan " height E&M 68 [in_i] Dominick Mcimllan " height in centimeters E&M 172.72 cm Dominick Mcmillan oxygen saturation, oximetry 97 % Merline Tobar " blood pressure, diastolic 82 mm[Hg] Merline Tobar " blood pressure, systolic 135 mm[Hg] Merline Tobar " respiratory rate E&M 13 /min Merline Tobar " pulse rate E&M 95 /min Merline Tobar " temperature E&M 98.7 [degF] Merline Tobar " weight E&M 168 lbs. Merline Tobar " weight in kilograms E&M 76.36 kg Merline Tobar " method used to obtain blood pressure automatic Merline Tobar " Blood Pressure Position 01 sitting Merline Tobar " blood pressure, site #1 right arm Merline Tobar " temperature site oral Merline Tobar " height E&M 68 [in_i] Merline Tobar " height in centimeters E&M 172.72 cm Merline Tobar blood pressure, diastolic 82 mm[Hg] Elizabeth Ramsay " blood pressure, systolic 133 mm[Hg] Elizabeth Ramsay " respiratory rate E&M 16 /min Elizabeth Ramsay " pulse rate E&M 80 /min Elizabeth Ramsay " method used to obtain blood pressure automatic Elizabeth Ramsay " Blood Pressure Position 01 sitting Elizabeth Ramsay " blood pressure, site #1 left arm Elizabeth Ramsay " oxygen saturation, oximetry 98 % Elizabeth Ramsay " temperature site tympanic Elizabeth Ramsay " temperature E&M 97.8 [degF] Elizabeth Ramsay " height E&M 68 [in_i] Elizabeth Ramsay " height in centimeters E&M 172.72 cm Elizabeth Ramsay " weight E&M 158 lbs. Elizabeth Ramsay " weight in kilograms E&M 71.82 kg Elizabeth Ramsay blood pressure, diastolic 78 mm[Hg] Joseph Nila " blood pressure, systolic 120 mm[Hg] Joseph Nila " pulse rate E&M 97 /min Joseph Nila " oxygen saturation, oximetry 98 % Joseph Nila " temperature E&M 97.1 [degF] Joseph Nila " weight E&M 162.13 lbs. Joseph Nila " weight in kilograms E&M 73.70 kg Joseph Nila " height E&M 68 [in_i] Joseph Nila " height in centimeters E&M 172.72 cm Joseph Nila " blood pressure, site #1 right arm Joseph Nila oxygen saturation, oximetry 98 % Joan Martinez " respiratory rate E&M 16 /min Joanlora Martinez " pulse rate E&M 83 /min Joanlora Martinez " temperature E&M 98.3 [degF] Joan Aniket Martinez " blood pressure, diastolic 79 mm[Hg] Joan J Juan " blood pressure, systolic 134 mm[Hg] Joan J Juan " weight E&M 165.13 lbs. Joan Aniket Martinez " weight in kilograms E&M 75.06 kg Joanlora Martinez " method used to obtain blood pressure automatic Joan Martinez " Blood Pressure Position 01 sitting Joan Martinez " blood pressure, site #1 left arm Joanlora Martinez " temperature site tympanic Joanlora Martinez " height E&M 68 [in_i] Joanlora Martinez " height in centimeters E&M 172.72 cm Joan Martinez blood pressure, diastolic 69 mm[Hg] Lacie Pollard " blood pressure, systolic 111 mm[Hg] Lacie Pollard " oxygen saturation, oximetry 99 % Lacie Pollard " pulse rate E&M 68 /min Lacie Pollard " temperature E&M 97.6 [degF] Lacie Pollard " weight E&M 172.50 lbs. Lacie Pollard " weight in kilograms E&M 78.41 kg Lacie Pollard " method used to obtain blood pressure automatic Lacie Pollard " Blood Pressure Position 01 sitting Lacie Pollard " blood pressure, site #1 left arm Lacie Pollard " temperature site tympanic Lacie Pollard " height E&M 68 [in_i] Lacie Pollard " height in centimeters E&M 172.72 cm Lacieyelitza Pollard pulse rate E&M 62 /min Meaghan Knox " blood pressure, diastolic 71 mm[Hg] Meaghan Knox " blood pressure, systolic 107 mm[Hg] Meaghan Knox " temperature E&M 97.9 [degF] Meaghan Knox " oxygen saturation, oximetry 99 % Meaghan Knox " weight E&M 169.50 lbs. Meaghan Knox " weight in kilograms E&M 77.05 kg Meaghan Knox " blood pressure, site #1 left arm Meaghan Knox " temperature site tympanic Meaghan Knox " method used to obtain blood pressure automatic Meaghan Knox " Blood Pressure Position 01 sitting Meaghan Knox " height E&M 68 [in_i] Meaghan Knox " height in centimeters E&M 172.72 cm Meaghan Knox pulse rate E&M 52 /min Leandra Beaulieu " blood pressure, diastolic 76 mm[Hg] Leandra Beaulieu " blood pressure, systolic 125 mm[Hg] Leandra Beaulieu " oxygen saturation, oximetry 98 % Leandra Beaulieu " temperature E&M 98 [degF] Leandra Beaulieu " weight E&M 167.80 lbs. Leandra Beaulieu " weight in kilograms E&M 76.27 kg Richilarissa Christofer " blood pressure, site #1 right arm Leandra Beaulieu " Blood Pressure Position 01 sitting Leandra Christofer " method used to obtain blood pressure automatic Leandra Beaulieu " temperature site tympanic Leandra Beaulieu " height E&M 68 [in_i] Leandra Christofer " height in centimeters E&M 172.72 cm Ana Rosalisa Christofer pulse rate E&M 55 /min Leandra Beaulieu " blood pressure, diastolic 74 mm[Hg] Leandra Beaulieu " blood pressure, systolic 136 mm[Hg] Ana Rosalisa Christofer " oxygen saturation, oximetry 98 % Leandra Beaulieu " temperature E&M 98.2 [degF] Leandra Beaulieu " weight E&M 171.40 lbs. Leandra Beaulieu " weight in kilograms E&M 77.91 kg Ana Rosalisa Christofer " blood pressure, site #1 right arm Richilarissa Christofer " Blood Pressure Position 01 sitting Ana Rosalisa Christofer " method used to obtain blood pressure automatic Leandra Beaulieu " temperature site tympanic Leandra Beaulieu " height E&M 68 [in_i] Ana Rosamartinephil Beaulieu " height in centimeters E&M 172.72 cm Leandra Beaulieu pulse rate E&M 50 /min Valarie Rader " blood pressure, diastolic 79 mm[Hg] Valarie Rader " blood pressure, systolic 122 mm[Hg] Valarie Rader " oxygen saturation, oximetry 98 % Valarie Rader " temperature E&M 96.9 [degF] Valarie Rader " weight E&M 175.25 lbs. Valarie Rader " weight in kilograms E&M 79.66 kg Valarie Rader " blood pressure, site #1 right arm Valarie Rader " Blood Pressure Position 01 sitting Valarie Rader " method used to obtain blood pressure automatic Valarie Prasanth " temperature site tympanic Valarie Rader " height E&M 68 [in_i] Valarie Rader " height in centimeters E&M 172.72 cm Valarie Rader pulse rate E&M 66 /min Leandra Beaulieu " blood pressure, diastolic 70 mm[Hg] Leandra Beaulieu " blood pressure, systolic 123 mm[Hg] Leandra Beaulieu " oxygen saturation, oximetry 97 % Leandra Beaulieu " temperature E&M 98 [degF] Leandra Beaulieu " weight E&M 176 lbs. Leandra Beaulieu " weight in kilograms E&M 80 kg Leandra Beaulieu " blood pressure, site #1 right arm Leandra Beaulieu " Blood Pressure Position 01 sitting Leandra Beaulieu " method used to obtain blood pressure automatic Lexiely Christofer " temperature site tympanic Leandra Beaulieu " height E&M 68 [in_i] Leandra Beaulieu " height in centimeters E&M 172.72 cm Leandra Beaulieu pulse rate E&M 69 /min Leandra Beaulieu " blood pressure, diastolic 74 mm[Hg] Leandra Beaulieu " blood pressure, systolic 117 mm[Hg] Leandra Beaulieu " oxygen saturation, oximetry 98 % Leandra Beaulieu " temperature E&M 98.1 [degF] Leandra Beaulieu " weight E&M 175 lbs. Leandra Beaulieu " weight in kilograms E&M 79.55 kg Leandra Beaulieu " blood pressure, site #1 right arm Leandra Beaulieu " Blood Pressure Position 01 sitting Leandra Beaulieu " method used to obtain blood pressure automatic Lexiely Christofer " temperature site tympanic Leandra Beaulieu " height E&M 68 [in_i] Leandra Beaulieu " height in centimeters E&M 172.72 cm Leandra Beaulieu pulse rate E&M 64 /min Leandra Beaulieu " blood pressure, diastolic 69 mm[Hg] Leandra Beaulieu " blood pressure, systolic 130 mm[Hg] Leandra Beaulieu " oxygen saturation, oximetry 97 % Leandra Beaulieu " temperature E&M 97.8 [degF] Leandra Beaulieu " weight E&M 176 lbs. Leandra Beaulieu " weight in kilograms E&M 80 kg Leandra Beaulieu " blood pressure, site #1 right arm Leandra Beaulieu " Blood Pressure Position 01 sitting Leandra Beaulieu " method used to obtain blood pressure automatic Leandra Beaulieu " temperature site tympanic Leandra Beaulieu " height E&M 68 [in_i] Leandra Beaulieu " height in centimeters E&M 172.72 cm Leandra Beaulieu pulse rate E&M 57 /min Leandra Beaulieu " blood pressure, diastolic 78 mm[Hg] Leandra Beaulieu " blood pressure, systolic 125 mm[Hg] Leandra Beaulieu " temperature site tympanic Leandra Beaulieu " method used to obtain blood pressure automatic Leandra Beaulieu " Blood Pressure Position 01 sitting Leandra Beaulieu " blood pressure, site #1 right arm Leandra Beaulieu " oxygen saturation, oximetry 100 % Leandra Beaulieu " temperature E&M 97.2 [degF] Leandra Beaulieu " weight E&M 175 lbs. Leandra Beaulieu " weight in kilograms E&M 79.55 kg Leandra Beaulieu " height E&M 68 [in_i] Leandra Beaulieu " height in centimeters E&M 172.72 cm Leandra Beaulieu pulse rate E&M 63 /min Leandra Beaulieu " blood pressure, diastolic 79 mm[Hg] Leandra Beaulieu " blood pressure, systolic 127 mm[Hg] Leandra Beaulieu " blood pressure, site #1 right arm Ana Rosalisa Christofer " Blood Pressure Position 01 sitting Leandra Beaulieu " method used to obtain blood pressure automatic Leandra Beaulieu " temperature site tympanic Leandra Beaulieu " oxygen saturation, oximetry 98 % Leandra Beaulieu " temperature E&M 98.7 [degF] Leandra Beaulieu " weight E&M 179.80 lbs. Leandra Beaulieu " weight in kilograms E&M 81.73 kg Leandra Beaulieu " height E&M 68 [in_i] Leandra Beaulieu " height in centimeters E&M 172.72 cm Leandra Beaulieu ALLERGIES Allergy Name Onset Date Reaction Criticality [...] as percent of blood lymphocytes 39.2 % [facility] 30.8-58.5 " T-helper cells (CD4) count 1019 /UL [facility] [id number] rapid plasma reagin antibody, serum Non Reactive [facility] Non Reactive " HIV-1RNA, serum, by PCR, quantitative <20 copies/mL [facility] " alanine aminotransferase (SGPT), serum 17 1/L [...] as percent of blood leukocytes 34 % [facility] " platelet count 230 X10E3/UL [facility] 150-379 " red blood cell distribution width 13.5 % [facility] 12.3-15.4 " mean corpuscular hemoglobin concentration, RBC 33.2 G/DL [facility] 31.5-35.7 " mean corpuscular hemoglobin, RBC 30.3 pg [facility] 26.6-33.0 " mean corpuscular volume, RBC 91 fL [facility] 79-97 " hematocrit, blood 39.2 % [facility] 37.5-51.0 " hemoglobin, blood 13.0 g/dL [facility] 12.6-17.7 " erythrocyte (RBC) count 4.29 X10E6/UL [facility] 4.14-5.80 " leukocyte count, blood 4.9 X10E3/UL [facility] 3.4-10.8 " CD4/CD8 ratio 1.27 [facility] 0.92-3.72 " T-suppressor cells (CD8) as percent of blood lymphocytes 33.4 % [facility] 12.0-35.5 " absolute CD8 868 [facility] 109-897 " T-helper cells (CD4) as percent of blood lymphocytes 42.4 % [facility] 30.8-58.5 " T-helper cells (CD4) count 1102 /UL [facility] [phone] source [facility]... [facility], serum, by PCR, quantitative <20 copies/mL [facility] " alanine aminotransferase (SGPT), serum 19 1/L [...] test for tuberculosis screening Negative [facility] Negative [id number] " Treponema pallidum antibodies, by particle agglutination Positive [facility] Negative Abnormal [id number] " rapid plasma reagin antibody, serum 1:1 [facility] NonRea<1:1 High [id number] " HIV-1RNA, serum, by PCR, quantitative <20 copies/mL [facility] [id number] " immature granulocytes, percentage of total cells, blood 0 % [facility] [id number] " basophil count, absolute 0.0 x10E3/uL [facility] 0.0-0.2 [id number] " Eosinophil Absolute Count 0.1 X10E3/UL [facility] 0.0-0.4 [id number] " monocyte count, blood, automated 0.4 X10E3/UL [facility] 0.1-0.9 [id number] " lymphocyte count, blood, automated 2.3 X10E3/UL [facility] 0.7-3.1 [id number] " Absolute Neutrophils 1.8 X10E3/UL [facility] 1.4-7.0 [id number] " basophils as percent of blood leukocytes 0 % [facility] [id number] " eosinophils as percent of blood leukocytes 3 % [facility] [id number] " monocytes as percent of blood leukocytes 9 % [facility] [id number] " lymphocytes as percent of blood leukocytes 50 % [facility] [id number] " neutrophils as percent of blood leukocytes 38 % [facility] [id number] " platelet count 244 X10E3/UL [facility] 150-379 [id number] " red blood cell distribution width 13.9 % [facility] 12.3-15.4 [id number] " mean corpuscular hemoglobin concentration, RBC 34.5 G/DL [facility] 31.5-35.7 [id number] " mean corpuscular hemoglobin, RBC 29.5 pg [facility] 26.6-33.0 [id number] " mean corpuscular volume, RBC 86 fL [facility] 79-97 [id number] " hematocrit, blood 40.0 % [facility] 37.5-51.0 [id number] " hemoglobin, blood 13.8 g/dL [facility] 12.6-17.7 [id number] " erythrocyte (RBC) count 4.68 X10E6/UL [facility] 4.14-5.80 [id number] " leukocyte count, blood 4.7 X10E3/UL [facility] 3.4-10.8 [id number] " CD4/CD8 ratio 0.95 [facility] 0.92-3.72 [id number] " T-suppressor cells (CD8) as percent of blood lymphocytes 39.5 % [facility] 12.0-35.5 High [id number] " absolute CD8 909 [facility] 109-897 High [id number] " T-helper cells (CD4) as percent of blood lymphocytes 37.6 % [facility] 30.8-58.5 [id number] " T-helper cells (CD4) count 865 /UL [facility] 359-1519 [id number] hepatitis A antibody, total Negative [facility] Negative [...] " T-helper cells (CD4) count 735 /UL [facility] [id number] HISTORY OF IMMUNIZATIONS No Information Available [...] for pain and inflammation Louise Diaz GENVOYA [phone] MG ORAL TABLET 1 tab by mouth daily with food Tracie Wiseman STRIBILD [phone] MG ORAL TABLET 1 By Mouth once a day - Louise Diaz SOCIAL HISTORY Date Observation Value Provider drug use, illicit no Lacie Pollard " alcohol use no Lacie Pollard " social history E&M Single. Not homeless. City: [place]. 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 [employer]. Highest education level: some college. Gender of partner(s): male. Sexually Active: No. Sex at : male. last sexual encounter was couple of months ago, with vince, male old, HIV neg Previous Travel: None. Lacie Pollard " social history reviewed E&M reviewed today Lacie Pollard " passive cigarette smoke exposure No Lacie Pollard " smoking status never smoker Lacieyelitza Pollard passive cigarette smoke exposure No Joao E Bam " smoking status never smoker Joao E Bam " is there any chance that you could be ? No Joao Martha Bam " sexual orientation Sotelo Joao Martha Kuhn " drug use, illicit no Joao E Bam " alcohol use no Joao E Bam " social history E&M Single. Not homeless. City: [place]. 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 [employer]. Highest education level: some college. Gender of partner(s): male. Sexually Active: No. Sex at : male. last sexual encounter was couple of months ago, with vince, male old, HIV neg Previous Travel: None. Joao Martha Kuhn " social history reviewed E&M reviewed today Joao E Bam " Exercise Program Referral T Joao Kuhn " Weight Management Counseling Provided T Joao Mratha Kuhn " Nutrition intervention T Joao Kuhn time of call 07/25/2018 3:11 PM Margaret Ann alcohol use no Jannette Wynn " drug use, illicit no Jannette Wynn " is there any chance that you could be ? No Jannette Wynn " smoking status never smoker Jannette Wynn drug use, illicit no Jose Eduardo Beaulieu " alcohol use no Jose Eduardo Beaulieu " social history E&M Single. Not homeless. City: [place]. 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 [employer]. Highest education level: some college. Gender of [...] " smoking status never smoker Jose Eduardo Beaulieu " Exercise Program Referral T Jose Eduardo Beaulieu " Weight Management Counseling Provided T Jose Eduardo Beaulieu " Nutrition intervention Bill Beaulieu drug use, illicit no Anne-Marie Martínez " alcohol use no Anne-Marie Ashburnham " social history E&M Single. Not homeless. City: [place]. 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 [employer]. Highest education level: some college. Gender of partner(s): male. Sexually Active: No. Sex at : male. last sexual encounter was couple of months ago, with vince, male old, HIV neg Previous Travel: None. Anne-Marie Ashburnham " social history reviewed E&M reviewed today Anne-Marie Martínez " sexual orientation Sotelo Anne-Marie Martínez " is there any chance that you could be ? No Anne-Marie Ashburnham " passive cigarette smoke exposure No Anne-Marie Martínez " smoking status never smoker Anne-Marie Martínez time of call 05/13/2018 2:08 PM Yuki Figueredoandrea social history E&M Single. Not homeless. City: [place]. 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 [employer]. Highest education level: some college. Gender of partner(s): male. Sexually Active: No. Sex at : male. last sexual encounter was couple of months ago, with vince, male old, HIV neg Previous Travel: None. Valarie Rader " social history reviewed E&M reviewed today Valarie Rader " drug use, illicit no Valarie Prasanth " alcohol use no Valarie Prasanth " passive cigarette smoke exposure No Valarie Prasanth " smoking status never smoker Valarie Rdaer drug use, illicit no Lacie Atul " alcohol use no Lacie Atul " social history E&M Single. Not homeless. City: [place]. 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 [employer]. Highest education level: some college. Gender of [...] social history E&M Single. Not homeless. City: [place]. 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 [employer]. Highest education level: some college. Gender of [...] social history E&M Single. Not homeless. City: [place]. 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 [employer]. Highest education level: some college. Gender of [...] Counseling Provided Bill Tobar " Nutrition intervention T Merline Tobar " drug use, illicit no Merline Tobar " alcohol use no Merline Tobar " social history E&M Single. Not homeless. City: [place]. 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 [employer]. Highest education level: some college. Gender of [...] Thien Vizcaino drug use, illicit no Elizabeth Ramsay " alcohol use no Elizabeth Ramsay " social history E&M Single. Not homeless. City: [place]. 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 [employer]. Highest education level: some college. Gender of partner(s): male. Sexually Active: No. Sex at : male. last sexual encounter was couple of months ago, with vince, male old, HIV neg Previous Travel: None. Elizabeth Ramsay " social history reviewed E&M reviewed today Elizabethrichi Ramsay " smoking status never smoker Elizabethrichi Ramsay " Exercise Program Referral T Elizabeth Ramsay " Weight Management Counseling Provided Bill Ramsay " Nutrition intervention T Elizabeth Ramsay Exercise Program Referral Bill Luis " Weight Management Counseling Provided T Denisse Luis " Nutrition intervention T Denisse Luis " is there any chance that you could be ? No Joseph Nila " passive cigarette smoke exposure No Joseph Nila " smoking status never smoker Joseph Nila " alcohol use no Joseph Nila " drug use, illicit no Joseph Nila " social history E&M Single. Not homeless. City: [place]. 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 [employer]. Highest education level: some college. Gender of partner(s): male. Sexually Active: No. Sex at : male. last sexual encounter was couple of months ago, with vince, male old, HIV neg Previous Travel: None. Josephcristian Dotson " social history reviewed E&M reviewed today Joseph Dotson Exercise Program Referral Bill Cummings " Weight Management Counseling Provided T Scotty Cummings " Nutrition intervention T Scotty Cummings " sexual orientation Sotelo Joan Martinez " drug use, illicit no Joan J Martinez " alcohol use no Joan J Martinez " social history E&M Single. Not homeless. City: [place]. 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 [employer]. Highest education level: some college. Gender of partner(s): male. Sexually Active: No. Sex at : male. last sexual encounter was couple of months ago, with sanjayod, male old, HIV neg Previous Travel: None. Joan Martinez " social history reviewed E&M reviewed today Joan Martinez " passive cigarette smoke exposure No Joan Martinez " smoking status never smoker Joan Marcial Juan drug use, illicit no Lacie Atul " alcohol use no Lacie Atul " social history E&M Single. Not homeless. City: [place]. 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 [employer]. Highest education level: some college. Gender of partner(s): male. Sexually Active: No. Sex at : male. last sexual encounter was couple of months ago, with vince, male old, HIV neg Previous Travel: None. Lacie Pollard " social history reviewed E&M reviewed today Lacie Pollard " passive cigarette smoke exposure No Lacie Atul " smoking status never smoker Lacie Atul " Exercise Program Referral Bill Pollard " Weight Management Counseling Provided Bill Pollard " Nutrition intervention Bill Pollard sexual orientation Sotelo Meaghan Solados " drug use, illicit no Meaghan Knox " alcohol use no Meaghan Knox " social history E&M Single. Not homeless. City: [place]. 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 [employer]. Highest education level: some college. Gender of partner(s): male. Sexually Active: No. Sex at : male. last sexual encounter was couple of months ago, with vince, male old, HIV neg Previous Travel: None. Meaghan Knox " social history reviewed E&M reviewed today Meaghanalondra Solados " is there any chance that you could be ? No Meaghan Knox " passive cigarette smoke exposure Yes Meaghan Knox " smoking status never smoker Meaghan Knox drug use, illicit no Leandra Beaulieu " alcohol use no Naalizely Christofer " social history E&M Single. Not homeless. City: [place]. 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 [employer]. Highest education level: some college. Gender of partner(s): male. Sexually Active: No. Sex at : male. last sexual encounter was couple of months ago, with vince, male old, HIV neg Previous Travel: None. Nalarissa Beaulieu " social history reviewed E&M reviewed today Leandra Beaulieu " is there any chance that you could be ? No Leandra Beaulieu " passive cigarette smoke exposure Yes Leandra Beaulieu " smoking status never smoker Leandra Beaulieu social history E&M Single. Not homeless. City: [place]. 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 [employer]. Highest education level: some college. Gender of partner(s): male. Sexually Active: No. Sex at : male. last sexual encounter was couple of months ago, with vince, male old, HIV neg Previous Travel: None. Louise Khan " social history reviewed E&M reviewed today [...] his friend and his mother Employed full-time. [employer]. Highest education level: some college. Gender of partner(s): male. Sexually Active: No. Sex at : male. last sexual encounter was couple of months ago, with vince, male old, HIV neg Previous Travel: None. Valarie Rader " social history reviewed E&M reviewed today Valarie Rader " alcohol use no Valarie Rader " drug use, illicit no Valarie Rader " smoking status never smoker Valarie Rader " passive cigarette smoke exposure Yes Valarie Rader " is there any chance that you could be ? No Valarie Rader social history E&M Single. Not homeless. City: [place]. 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 [employer]. Highest education level: some college. Gender of [...] social history E&M Single. Not homeless. City: [place]. 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 [employer]. Highest education level: some college. Gender of [...] social history E&M Single. Not homeless. City: [place]. 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 [employer]. Highest education level: some college. Gender of partner(s): male. Sexually Active: No. Sex at : male. last sexual encounter was couple of months ago, with conod, male old, HIV neg Previous Travel: None. Louise Diaz " social history - sexual practice last sexual encounter was couple of months ago, with conod, male old, HIV neg Louise Emily " social history reviewed E&M reviewed today [...] time of call 03/05/2015 9:38 AM Bin Chang sex at male Louise Diaz " social history - sexual practice last sexual encounter was couple of months ago, without conodms, male old, HIV + on meds, both Louise Diaz " home/family situation, assessment lives with his friend and his mother Louise Diaz " Occupation #1 [employer] Lexiephil Christofer " patient considered to be homeless No Leandra Beaulieu " drug use, illicit Previously Louise Diaz " alcohol use sometimes Leandra Beaulieu " passive cigarette smoke exposure Yes Leandra Beaulieu " smoking status never smoker Leandra Christofer FUNCTIONAL STATUS No Information Available MENTAL STATUS [...] E&M no depression, anxiety, or agitation Ric Lissy " Generalized Anxiety Disorder Questionnaire - Question [...] Disorder Questionnaire - Question 1 0 Merline Tobar mental status examination: orientation E&M oriented to time, place, and person Ric Adrielmo " assessment of mood and affect E&M no depression, anxiety, or agitation Ric Nemecek " Generalized Anxiety Disorder Questionnaire - Question 2 0 Elizabeth Ramsay " Generalized Anxiety Disorder Questionnaire - Question 1 0 Elizabeth Crawleyila mental status examination: orientation E&M oriented to time, place, and person Denisse Luis " assessment of mood and affect E&M no depression, anxiety, or agitation Denisse Luis " Generalized Anxiety Disorder Questionnaire - Question 2 0 Joseph Dotson " Generalized Anxiety Disorder Questionnaire - Question 1 0 Joseph Dotson assessment of mood and affect E&M no agitation Scotty Cummings " Generalized Anxiety Disorder Questionnaire - Question 2 0 Joan Martinez " Generalized Anxiety Disorder Questionnaire - Question 1 0 Joan Martinez assessment of judgment and insight E&M intact Tracie Shrikant " mental status examination: orientation E&M oriented to time, place, and person [facility] " assessment of mood and affect E&M no depression, anxiety, or agitation Tracie Shrikant " Generalized Anxiety Disorder Questionnaire - Question 2 0 Lacie Pollard " Generalized Anxiety Disorder Questionnaire - Question 1 0 Lacie Pollard assessment of judgment and insight E&M intact Tracie Shrikant " mental status examination: orientation E&M oriented to time, place, and person Tracie Shrikant " assessment of mood and affect E&M no depression, anxiety, or agitation Tracie Shrikant " Generalized Anxiety Disorder Questionnaire - Question [...] name Policy type / Coverage type Covered constitution party ID *Silas White 0-100% Other [id number] Sliding Fee - Cat 1 [employer] insurance dermSearch [id number] FAMILY PLANNING*TITLE V Medicaid Primary Health Care Jose Other *Silas White 0-100% Other *Silas White 0-100% Other FAMILY PLANNING*TITLE V Medicaid Primary Health Care Jose Other *Silas White 0-100% Other FAMILY PLANNING*TITLE V Medicaid Primary Health Care Jose Other *Silas White 0-100% Other *Silas White 0-100% Other [id number] Self Pay Self pay FAMILY PLANNING*TITLE V Medicaid Primary Health Care Jsoe Other *Silas White 0-100% Other Sliding Fee - Cat 1 [employer] insurance dermSearch [id number] Silas White 300-500% Other [id number] Silas White up to 300% Other [id number] Primary Health Care Jose Other Family Planning/WHFPT [...] Panel (14) CD4/CD8 Ratio Profile - - Prescription Assistance (HIV - URGENT) Injection, ceftriaxone sodium, per 250 mg Est Patient Exp Problem - 38067 Est Patient Detailed - 52850 Vision Est Patient Detailed - 66688 IM Injection of Antibiotic Injection, ceftriaxone sodium, per 250 mg Oral / SL / DE Azithromycin oral Ofc Vst, Est Level III IM Injection of Antibiotic Injection, ceftriaxone sodium, per 250 mg Oral / SL / DE Azithromycin oral Est Patient Exp Problem - 98938 Handling of specimen for transfer Venipuncture Est Patient Problem Focus - 03219 Injection, ceftriaxone sodium, per 250 mg Azithromycin oral Est Patient Detailed - 05692 Influenza 4 Valent 3yrs+ IM - Declined Est Patient Exp Problem - 29432 Est Patient Exp Problem - 83046 Est Patient Exp Problem - 59038 IM or SQ Injection Injection, ceftriaxone sodium, per 250 mg IM or SQ Injection Injection, ceftriaxone sodium, per 250 mg Oral / SL / DE Azithromycin oral Ofc Vst, Est Level IV Ofc Vst, Est Level III Destruction Benign Lesion - 1 Est Patient Exp Problem - 81449 Azithromycin oral Injection, ceftriaxone sodium, per 250 mg Est Patient Exp Problem - 45003 Est Patient Exp Problem - 26891 Influenza 4 Valent 3yrs+ IM - Declined Dental - Internal Ofc Vst, Est Level III Ofc Vst, Est Level III Xray - Knee - 3 Views - InHouse Xray - Shoulder - InHouse Ofc Vst, Est Level III Ofc Vst, Est Level III Est Patient Nurse - Only Visit - 64067 Hepatitis A - Adult Admin of Vaccine [...] Service Linkage Est Patient Exp Problem - 94745 Primary Care Service Linkage Ofc Vst, New Level III Primary Care Service Linkage Hepatitis A - Adult Handling of specimen for transfer Venipuncture HISTORY OF PROCEDURES Procedure Date Procedure Name Provider Procedure Notes Status Injection, ceftriaxone sodium, per 250 mg Tracie Wiseman completed IM Injection of Antibiotic Ric Yuan completed Injection, ceftriaxone sodium, per 250 mg Ric Yuan completed Oral / SL / DE Ric Yuan completed Azithromycin oral Ric Yuan completed IM Injection of Antibiotic Magdalene Steiner completed Injection, ceftriaxone sodium, per 250 mg Magdalene Steiner completed Oral / SL / DE Magdalene Steiner completed Azithromycin oral Magdalene Steiner completed Venipuncture Magdalene Steiner completed Injection, ceftriaxone sodium, per 250 mg Eva G Angel completed Azithromycin oral Eva G Angel completed Influenza 4 Valent 3yrs+ IM - Declined Tracie Wiseman completed IM or SQ Injection Kenny Moreno completed Injection, ceftriaxone sodium, per 250 mg Kenny Moreno [facility]: [id number]. completed IM or SQ Injection Ric Yuan completed Injection, ceftriaxone sodium, per 250 mg Ric Yuan completed Oral / SL / DE Ric Yuan completed Azithromycin oral Ric Yuan completed Destruction Benign Lesion - 1 Denisse Luis completed Azithromycin oral Scotty Cummings [facility]: [id number]. completed Injection, ceftriaxone sodium, per 250 mg Scotty Cummings [facility]: [id number]. completed Influenza 4 Valent 3yrs+ IM - Declined Tracie Bowen completed [facility] Linkage Sely Rosemead Time spent with patient:46 completed Primary Care Service Linkage Sely Sharma Time spent with patient:30 completed Primary Care Service Linkage Sely Sharma Time spent with patient:12 completed Primary Care Service Linkage Sely Sharma Time spent with patient:47 completed Primary Care Service Linkage Sely Sharma Time spent with patient:64 completed Primary [...] with patient:21 completed Primary Care Service Linkage Sely Sharma Time spent with patient:20 completed Venipuncture Louise Diaz completed GOALS No Information Available [facility] No Information Available
[2019-06-02] MEDS ORDERED: AUGMENTIN 875-1 EACH PO (20:08)
[2019-06-02] MEDS ORDERED: CLEOCIN HCL150 MG PO (20:09)
== END 2019-06-02 20:18 | disposition home or self-care (01) ==
LOC: FSED 19:42
DX: L03.116 Cellulitis of left lower limb (principal); B20 Human immunodeficiency virus [HIV] disease
CPT/HCPCS: 99282